=== PATIENT | female | born 1950 | race Caucasian/White ===

== ENCOUNTER 2020-07-15 17:41 | Inpatient (IN) ==
[2020-07-15 18:05] VITALS: BMI 38.1
--- NOTE | 2020-07-15 21:24 | DR.EXTPAIN ---
HPI Time seen Time Seen by Provider: 07/15/20 21:24 PCP Primary Care Physician: DESI MARQUEZ Complaint/Symptoms Chief Complaint:: PT C/O LEFT HIP AND LEG PAIN ( PT WAS IN ER THURSDAY AND PT WAS TOLD IT WAS ARTHITIS ) Self Treatment fo Chief Complaint: NERONTIN, DWAYNEZANADINE COVID-19 Coronavirus risk:travel/contact w/high risk person: No Has patient experienced Coronavirus symptoms: No Nurses notes reviewed Nurses Notes Review: Yes Source History Provided: Patient Mode of arrival Mode of Arrival: Ambulatory Timing Onset of Chief Complaint: 07/13/20 Context History of: None Associated signs and symptoms Associated Signs and Symptoms: None PMH PMH Past Medical History: Yes Past Medical History: Arthritis, Diabetes, Dyslipidemia, Hypertension and Hypothyroidism Past Surgical History: Yes Surgical History: Hysterectomy Family History History of Family Medical Conditions: Yes Family Medical History: Diabetes Mellitus and Hypertension Social History Does patient currently use any type of tobacco product: No Have you used tobacco products in the last 12 months: No Type of Tobacco Use: None Does any household member use tobacco: No Alcohol Use: None Do you use any recreational Drugs:: No Lives With: Family Lives Where: Home Travel Risk Coronavirus risk:travel/contact w/high risk person: No Has patient experienced Coronavirus symptoms: No Infectious screening In the last 2 months have you had wt loss of >10#?: NO Have you had fever, night sweats or hemotysis?: No Have you traveled outside the country in the last 6 months?: No Isolation: Standard ROS Review of Systems Constitutional: No Symptoms Reported Eyes: No Symptoms Reported ENTM: No Symptoms Reported Respiratoy: No Symptoms Reported Cardiovascular: No Symptoms Reported Gastrointestinal/Abdominal: No Symptoms Reported Genitourinary: No Symptoms Reported Neurological: No Symptoms Reported Musculoskeletal: No Symptoms Reported Integumentary: No Symptoms Reported Hematologic/Lymphatic: No Symptoms Reported Endocrine: No Symptoms Reported Psychiatric: No Symptoms Reported All Other Systems: Reviewed and Negative PE Vital Signs Vitals: Temperature 96.6 F Pulse Rate [Left Brachial] 60 Pulse Rate 82 Respiratory Rate 20 Blood Pressure [Right Arm] 192/78 Blood Pressure 112/80 O2 Sat by Pulse Oximetry 93 General Limitations: No Limitations General Appearance: Alert and In No Apparent Distress Head Head Exam: Normal Inspection Eyes Eye exam: Normal Appearance ENT ENT Exam: Normal Exam Neck Neck Exam: Normal Inspection Chest Chest Inspection: Normal Inspection Respiratory Respiratory Exam: Normal Lung Sounds Bilat Cardiovascular Cardiovascular Exam: Regular Rate and Normal Rhythm Abdominal Exam Abdominal Exam: Normal Inspection, Normal Bowel Sounds and Soft Extremities Extremities Exam: Normal Inspection Back Back Exam: Normal Inspection Neurological Neurological Exam: Alert, Oriented X3 and CN II-XII Intact Psychiatric Psychiatric Exam: Normal Affect and Normal Mood Skin Skin Exam: Warm, Dry, Intact and Normal Color ROR Labs Reviewed Result Diagrams: 07/15/20 21:35 07/15/20 21:35 Laboratory: WBC 8.1 X10^3/uL (3.6-10.0) 07/15/20 21:35 RBC 5.31 X10^6/uL (3.5-5.4) 07/15/20 21:35 Hgb 15.0 g/dL (12.0-16.0) 07/15/20 21:35 Hct 45.3 % (36.0-47.0) 07/15/20 21:35 MCV 85.4 fL (80.0-100.0) 07/15/20 21:35 MCH 28.2 pg (27.0-34.0) 07/15/20 21:35 MCHC 33.0 g/dL (33.0-35.0) 07/15/20 21:35 RDW 15.1 % (11.6-16.5) 07/15/20 21:35 Plt Count 247 X10^3/uL (150.0-450.0) 07/15/20 21:35 MPV 7.5 fL (7.4-11.0) 07/15/20 21:35 Neut % (Auto) 68.3 % (42.0-75.0) 07/15/20 21:35 Lymph % (Auto) 20.2 % (21.0-51.0) L 07/15/20 21:35 [place] % (Auto) 8.2 % (0.0-13.0) 07/15/20 21:35 Eos % (Auto) 1.3 % (0.9-2.9) 07/15/20 21:35 Baso % (Auto) 2.0 % (0.2-1.0) H 07/15/20 21:35 Neut # (Auto) 5.5 x10^3/uL (2.2-4.8) H 07/15/20 21:35 Lymph # (Auto) 1.6 X10^3/uL (1.3-2.9) 07/15/20 21:35 [place] # (Auto) 0.7 x10^3/uL (0.3-0.8) 07/15/20 21:35 Eos # (Auto) 0.1 x10^3/uL (0.0-0.2) 07/15/20 21:35 Baso # (Auto) 0.2 X10^3/uL (0.0-0.1) H 07/15/20 21:35 Absolute Nucleated RBC 0.1 /100WBC 07/15/20 21:35 D-Dimer 3.02 ug/ml (0.0-0.57) H* 07/15/20 21:35 Sodium 146 mmol/L (136-145) H 07/15/20 21:35 Corrected Sodium TNP 07/15/20 21:35 Potassium 3.7 mmol/L (3.5-5.1) 07/15/20 21:35 Chloride 107 mmol/L (98-107) 07/15/20 21:35 Carbon Dioxide 30.2 mmol/L (21-32) 07/15/20 21:35 BUN 16 mg/dL (7-18) 07/15/20 21:35 Creatinine 1.22 mg/dL (0.55-1.02) H 07/15/20 21:35 Est GFR (MDRD) Af Amer 56 (>60) L 07/15/20 21:35 Est GFR (MDRD) Non-Af 46 (>60) L 07/15/20 21:35 Glucose 101 mg/dL (65-99) H 07/15/20 21:35 Calcium 9.2 mg/dL (8.5-10.1) 07/15/20 21:35 Corrected Calcium 9.8 mg/dL (8.5-10.1) 07/15/20 21:35 Total Bilirubin 0.30 mg/dL (0.2-1.0) 07/15/20 21:35 AST 18 Units/L (15-37) 07/15/20 21:35 ALT 19 Units/L (12-78) 07/15/20 21:35 Alkaline Phosphatase 92 Units/L (46-116) 07/15/20 21:35 Total Protein 7.7 g/dL (6.4-8.2) 07/15/20 21:35 Albumin 3.3 g/dL (3.4-5.0) L 07/15/20 21:35 Globulin 4.4 g/dL (2.5-4.5) 07/15/20 21:35 Albumin/Globulin Ratio 0.8 Ratio (1.1-2.1) L 07/15/20 21:35 SARS CoV-2 RNA Rapid BOBBY Negative (NEGATIVE) 07/16/20 02:50 EKG [place]: Normal Rhythm: NSR Block: None Hypertrophy: None ST: Normal Opioid Opioid Risk Tool Age (Philippe box if 16-45): No History of Preadolescent Sexual Abuse: No Total: 0 Total Score Risk Category: Low Risk Copyright: Brayan WYLIE predicting aberrant behaviors Instructions Forms: Precautions for COVID19 Patient Portal Social Distancing
[2020-07-15] MEDS ORDERED: MORPHINE SULFATE INJ 4 MG ONE (21:31)
[2020-07-15] MEDS ORDERED: ZOFRAN INJ 4 MG VIAL ONE (21:31)
[2020-07-15] MEDS ORDERED: ZOFRAN INJ 4 MG VIAL IM ONE (21:42)
[2020-07-15] MEDS ORDERED: MORPHINE SULFATE INJ 4 MG IM ONE (21:42)
[2020-07-15 21:44] LABS: BASOPHILS # (AUTO) 0.2 X10^3/uL (0.0-0.1); EOSINOPHILS # (AUTO) 0.1 x10^3/uL (0.0-0.2); EOSINOPHILS % (AUTO) 1.3 % (0.9-2.9); HEMATOCRIT 45.3 % (36.0-47.0); LYMPHOCYTES # (AUTO) 1.6 X10^3/uL (1.3-2.9); LYMPHOCYTES % (AUTO) 20.2 % (21.0-51.0); MEAN CORPUSCULAR HEMOGLOBIN 28.2 pg (27.0-34.0); MEAN CORPUSCULAR VOLUME 85.4 fL (80.0-100.0); MEAN PLATELET VOLUME 7.5 fL (7.4-11.0); MONOCYTES # (AUTO) 0.7 x10^3/uL (0.3-0.8); MONOCYTES % (AUTO) 8.2 % (0.0-13.0); NEUTROPHILS # (AUTO) 5.5 x10^3/uL (2.2-4.8); NEUTROPHILS % (AUTO) 68.3 % (42.0-75.0); PLATELET COUNT 247 X10^3/uL (150.0-450.0); RED BLOOD COUNT 5.31 X10^6/uL (3.5-5.4); RED CELL DISTRIBUTION WIDTH 15.1 % (11.6-16.5); WHITE BLOOD COUNT 8.1 X10^3/uL (3.6-10.0)
[2020-07-15 21:55] LABS: ALANINE AMINOTRANSFERASE 19 Units/L (12-78); ALBUMIN 3.3 g/dL (3.4-5.0); ALKALINE PHOSPHATASE 92 Units/L (46-116); ASPARTATE AMINO TRANSFERASE 18 Units/L (15-37); BLOOD UREA NITROGEN 16 mg/dL (7-18); CALCIUM 9.2 mg/dL (8.5-10.1); CARBON DIOXIDE 30.2 mmol/L (21-32); CHLORIDE 107 mmol/L (98-107); COR CA(FOR HYPOALB) 9.8 mg/dL (8.5-10.1); CREATININE 1.22 mg/dL (0.55-1.02); SODIUM 146 mmol/L (136-145); TOTAL PROTEIN 7.7 g/dL (6.4-8.2); eGFR NON BLACK RACES 46 (>60)
[2020-07-15] MEDS ORDERED: NORVASC TAB 5 MG ONE (23:16)
[2020-07-15] MEDS ORDERED: CATAPRES TAB 0.1 MG PO ONE (23:18)
[2020-07-16] MEDS ORDERED: CATAPRES TAB 0.1 MG ONE (00:12)
[2020-07-16] MEDS ORDERED: NS 100 ML IV 100 ML IV ONE (00:37)
--- NOTE | 2020-07-16 00:43 | VAS ---
HISTORYLEFT HIP PAIN, ELEVATED D-DIMERSTUDYLOWER EXT VENOUS, UNILATERALCOMPARISONNo relevant prior studies available.TECHNIQUEGrayscale and color Doppler images of the left lower extremity.FINDINGSCommon femoral, femoral and popliteal veins demonstrate normal compressibility, color Doppler flow, waveforms and augmentation with no filling defects.Soft tissues: UnremarkableIMPRESSIONNo evidence of deep venous thrombus.Electronically signed by: Jose Cruz Carmona (July 16, 2020 00:41:41)
--- NOTE | 2020-07-16 02:16 | CT ---
HISTORY: [Dyspnea and shortness of breath]. Elevated D-dimerStudy: CT angiogram of the chest with contrast, using the CT PE protocol. For this CT pulmonary embolism angiographic protocol, 3D reformats / maximum intensity projections (MIPs) of the pulmonary arterial circulation and pulmonary arteries was performed.Comparison: [None].Technique: Multiple CT angiographic axial images of the chest were obtained from the thoracic inlet to the upper abdomen after the administration of IV contrast. For this CT pulmonary embolism angiographic protocol, 3D reformats / maximum intensity projections (MIPs) of the pulmonary arterial circulation and pulmonary arteries was performed.FINDINGS:The thoracic inlet is [unremarkable]. The mediastinum [does not demonstrate pathological lymphadenopathy].There is [no paracardial effusion] observed. The thoracic aorta [is normal in its contour without evidence for aneurysmal dilatation or acute dissection]. Thrombi present within segmental and subsegmental branches supplying the right upper and lower lobes. There is no CT evidence of right heart strain.Evaluation of the lung parenchyma [fails to demonstrate focal consolidation or effusion]. [No pulmonary nodule or mass] is identified]. The bony thorax is .unremarkable in its appearance]. The visualized portions of the upper abdomen [are without acute abnormality]. Small hiatal hernia.IMPRESSION:[Acute pulmonary embolic disease with several thrombi present within segmental and subsegmental branches supplying the right upper and right lower lobes. Clot burden low.COMMUNICATIONS: These findings were discussed with of the emergency Department at 2:11 a.m. 07/16/2020.[]Electronically signed by: Donis Bentley (July 16, 2020 02:14:22)
[2020-07-16] MEDS ORDERED: CATAPRES TAB 0.2 MG ONE (03:15)
[2020-07-16] MEDS ORDERED: CATAPRES TAB 0.2 MG PO ONE (03:18)
[2020-07-16] MEDS ORDERED: HEPARIN SODIUM INJ 5000 UNITS ONE ×3 (03:47→19:32)
[2020-07-16] MEDS ORDERED: HEPARIN SODIUM IN D5W 25,000 UNITS/500 ML BAG IV ONE (03:48)
[2020-07-16] MEDS: HEPARIN SODIUM IN D5W 25,000 UNITS/500 ML BAG IV PRN ×2 (04:00→12:30)
[2020-07-16] MEDS: CATAPRES TAB 0.1 MG PO SCH ×2 (09:10→20:20)
[2020-07-16] MEDS ORDERED: ZANAFLEX PO PRN (10:19)
[2020-07-16] MEDS ORDERED: ULTRAM PO PRN (10:24)
[2020-07-16] MEDS ORDERED: VITAMIN D (1.25MG) PO SCH (10:30)
--- NOTE | 2020-07-16 10:54 | DR.H&P ---
H&P History & Physical for Day of: H&P Date: 07/16/20 Chief Complaint Chief Complaint: Acute low back pain Left hip pain Allergies Allergies Allergy/AdvReac Type Severity Reaction Status Date / Time No Known Drug Allergies Allergy Verified 07/13/20 12:23 History of Present Illness History of Present Illness: Pt is a 70 year old female past medical history of DDD, HTN, DMT2, Hypothyroidism, presenting initially with persistent severe low back and left hip pain. Pt reports pain is chronic but has recently worsened and having difficulty tolerating even with pain medication that she takes. Labs/imaging: Wbc 8.1, Hgb 15, Plt 247, Na 146, K 3.7, Creatinine 1.22, Glucose 101, D-dimer 3.02, CTAP was obtained and revealed: No acute intra-abdominal or pelvic inflammatory process identified by noncontrast imaging techniques. Nonobstructing lower pole right renal calculus. Colonic diverticulosis without diverticulitis. Advanced multilevel discogenic degenerative changes and facet hypertrophy of the lumbar spine with associated multilevel spinal stenosis and neural foraminal compromise. Small hiatal hernia and small fat containing left inguinal hernia. Other chronic, postsurgical, and age related degenerative findings, as described above. With elevated d-dimer, LLE U/S obtained that was negative for DVT, CTA Chest revealed: Acute pulmonary embolic disease with several thrombi present within segmental and subsegmental branches supplying the right upper and right lower lobes. Clot burden low. Pt reported no shortness of breath or chest pain as initial complaint or reason to go to ED. Pt was started on heparin gtt. For pain control, IV morphine 2mg Q6h prn. Restarted on home medications including tramadol. Continue heparin infusion, will need to convert to po NOAC before discharge. Likely will need outpatient referral to ortho/neurosurgery for DDD. Will continue to monitor and follow up labs/imaging in the morning. Past Medical History Past Medical History: Arthritis, Diabetes, Dyslipidemia, Hypertension and Hypothyroidism Past Surgical History Surgical History: Hysterectomy and Other Family History Family Medical History: Diabetes Mellitus, Coronary Artery Disease and Hypertension Social History Does patient currently use any type of tobacco product: No Have you used tobacco products in the last 12 months: No Type of Tobacco Use: None Does any household member use tobacco: No Alcohol Use: None Drug Use: None Medications Home Medications: No Known Drug Allergies Allergy (Verified 07/13/20 12:23) CONTINUE taking the following medications alendronate 10 mg PO QAM 07/16/20 [History] alprazolam 0.5 - 1 mg PO BID 07/16/20 [History] amlodipine 10 mg PO HS 07/16/20 [History] clonidine 0.3 mg TRANSDERMAL QWEEK 07/16/20 [History] clonidine HCl 0.1 mg PO BID PRN 07/16/20 [History] duloxetine 20 mg PO DAILY 07/16/20 [History] ergocalciferol (vitamin D2) [Vitamin D2] 1,250 mcg PO QWEEK 07/16/20 [History] escitalopram oxalate 10 mg PO DAILY 07/16/20 [History] gabapentin 300 mg PO HS 07/16/20 [History] ibuprofen 800 mg PO DAILY 07/16/20 [History] levothyroxine 88 mcg PO DAILY 07/16/20 [History] losartan 100 mg PO DAILY 07/16/20 [History] metformin 500 mg PO BID 07/16/20 [History] tramadol 50 mg PO Q4-6H PRN 07/16/20 [History] Labs Result Diagrams: 07/15/20 21:35 07/15/20 21:35 Labs: Laboratory WBC 8.1 X10^3/uL (3.6-10.0) 07/15/20 21:35 RBC 5.31 X10^6/uL (3.5-5.4) 07/15/20 21:35 Hgb 15.0 g/dL (12.0-16.0) 07/15/20 21:35 Hct 45.3 % (36.0-47.0) 07/15/20 21:35 MCV 85.4 fL (80.0-100.0) 07/15/20 21:35 MCH 28.2 pg (27.0-34.0) 07/15/20 21:35 MCHC 33.0 g/dL (33.0-35.0) 07/15/20 21:35 RDW 15.1 % (11.6-16.5) 07/15/20 21:35 Plt Count 247 X10^3/uL (150.0-450.0) 07/15/20 21:35 MPV 7.5 fL (7.4-11.0) 07/15/20 21:35 Neut % (Auto) 68.3 % (42.0-75.0) 07/15/20 21:35 Lymph % (Auto) 20.2 % (21.0-51.0) L 07/15/20 21:35 [place] % (Auto) 8.2 % (0.0-13.0) 07/15/20 21:35 Eos % (Auto) 1.3 % (0.9-2.9) 07/15/20 21:35 Baso % (Auto) 2.0 % (0.2-1.0) H 07/15/20 21:35 Neut # (Auto) 5.5 x10^3/uL (2.2-4.8) H 07/15/20 21:35 Lymph # (Auto) 1.6 X10^3/uL (1.3-2.9) 07/15/20 21:35 [place] # (Auto) 0.7 x10^3/uL (0.3-0.8) 07/15/20 21:35 Eos # (Auto) 0.1 x10^3/uL (0.0-0.2) 07/15/20 21:35 Baso # (Auto) 0.2 X10^3/uL (0.0-0.1) H 07/15/20 21:35 Absolute Nucleated RBC 0.1 /100WBC 07/15/20 21:35 PT 13.1 SECONDS (11.8-14.3) 07/16/20 03:15 INR Target Range - 07/16/20 03:15 INR 1.04 (0.8-1.3) 07/16/20 03:15 APTT 177.5 SECONDS (22.9-36.5) H* 07/16/20 10:15 PTT Comment - 07/16/20 10:15 D-Dimer 3.02 ug/ml (0.0-0.57) H* 07/15/20 21:35 Sodium 146 mmol/L (136-145) H 07/15/20 21:35 Corrected Sodium TNP 07/15/20 21:35 Potassium 3.7 mmol/L (3.5-5.1) 07/15/20 21:35 Chloride 107 mmol/L (98-107) 07/15/20 21:35 Carbon Dioxide 30.2 mmol/L (21-32) 07/15/20 21:35 BUN 16 mg/dL (7-18) 07/15/20 21:35 Creatinine 1.22 mg/dL (0.55-1.02) H 07/15/20 21:35 Est GFR (MDRD) Af Amer 56 (>60) L 07/15/20 21:35 Est GFR (MDRD) Non-Af 46 (>60) L 07/15/20 21:35 Glucose 101 mg/dL (65-99) H 07/15/20 21:35 Calcium 9.2 mg/dL (8.5-10.1) 07/15/20 21:35 Corrected Calcium 9.8 mg/dL (8.5-10.1) 07/15/20 21:35 Total Bilirubin 0.30 mg/dL (0.2-1.0) 07/15/20 21:35 AST 18 Units/L (15-37) 07/15/20 21:35 ALT 19 Units/L (12-78) 07/15/20 21:35 Alkaline Phosphatase 92 Units/L (46-116) 07/15/20 21:35 Total Protein 7.7 g/dL (6.4-8.2) 07/15/20 21:35 Albumin 3.3 g/dL (3.4-5.0) L 07/15/20 21:35 Globulin 4.4 g/dL (2.5-4.5) 07/15/20 21:35 Albumin/Globulin Ratio 0.8 Ratio (1.1-2.1) L 07/15/20 21:35 SARS CoV-2 RNA Rapid BOBBY Negative (NEGATIVE) 07/16/20 02:50 Review of Systems Constitutional: Weakness; denies Fever and Chills Eyes: No Symptoms Reported ENT: No Symptoms Reported Respiratory: No Symptoms Reported Cardiovascular: No Symptoms Reported Gastrointestinal: No Symptoms Reported Genitourinary: No Symptoms Reported Musculoskeletal: Back Pain and Leg Pain (left) Skin: No Symptoms Reported Neurological: No Symptoms Reported Physical Exam Vital Signs: Temperature 96.6 F Pulse Rate [Left Brachial] 60 Pulse Rate 60 Respiratory Rate 21 Blood Pressure [Right Arm] 192/78 Blood Pressure 145/70 O2 Sat by Pulse Oximetry 99 Oriented: Normal Eyes: Normal Ear: Normal Nose: Normal Throat: Normal Respiratory: Clear Throughout Cardiovascular: Normal : Normal Auscultation: Bowel Sounds: Normal Palpation: Normal Tenderness: Normal Skin: Normal Musculoskeletal: Hip, Back:Lumbar and Back:Midline Psychiatric: Normal Mood Description: Calm and Appropriate Affect: Normal Speech Pattern: Clear and Appropriate Assessment/Plan (1) Pulmonary embolism: Status: Acute Plan: Heparin gtt (2) Acute hip pain: Status: Acute (3) Lower back pain: Qualifiers: Back pain laterality: bilateral Chronicity: acute Sciatica laterality: sciatica of right side Sciatica presence: with sciatica Qualified Code(s): M54.41 - Lumbago with sciatica, right side Status: Acute Review H&P Reviewed: Yes Patient was examined?: Yes
[2020-07-16] MEDS ORDERED: CATAPRES-TTS-1 TD SCH (11:00)
[2020-07-16] MEDS ORDERED: LEXAPRO ONE (11:11)
[2020-07-16] MEDS: COZAAR PO SCH (11:12)
[2020-07-16] MEDS: SYNTHROID 88 mcg TAB PO SCH (11:13)
[2020-07-16] MEDS: LEXAPRO PO SCH (11:13)
[2020-07-16] MEDS: PATIENT'S HOME MEDICATION PO SCH (12:24)
[2020-07-16 13:27] LABS: BILIRUBIN,URINE NEGATIVE (NEGATIVE); BLOOD/HEMOGLOBIN,URINE 5+ (NEGATIVE); GLUCOSE, URINE NEGATIVE (NEGATIVE); KETONES,URINE NEGATIVE (NEGATIVE); LEUKOCYTE ESTERASE ,URINE NEGATIVE (NEGATIVE); NITRITES,URINE NEGATIVE (NEGATIVE); PROTEIN,URINE 2+ (NEGATIVE); UROBILINOGEN,URINE 1+ (NORMAL)
[2020-07-16 13:43] LABS: APPEARANCE,URINE HAZY (CLEAR); BACTERIA,URINE NEGATIVE /HPF (NEGATIVE); COLOR,URINE DARK YELLOW (YELLOW); MUCUS,URINE RARE /HPF (NEGATIVE); RBC,URINE 20-30 /HPF (0-3); SQUAMOUS EPITHELIAL CELL,UR FEW /HPF (NEGATIVE)
[2020-07-16] MEDS ORDERED: GLUCOPHAGE ONE (17:15)
[2020-07-16] MEDS: GLUCOPHAGE PO SCH (17:25)
[2020-07-16] MEDS ORDERED: HEPARIN SODIUM INJ 5000 UNITS IVP ONE (19:30)
[2020-07-16] MEDS ORDERED: NEURONTIN CAP 300 MG ONE (19:56)
[2020-07-16] MEDS: NEURONTIN CAP 300 MG PO SCH (20:21)
[2020-07-16] MEDS: XANAX PO PRN (21:10)
[2020-07-16] MEDS ORDERED: NORVASC TAB 10 MG PO ONE (23:14)
[2020-07-17 01:57] LABS: BASOPHILS # (AUTO) 0.1 X10^3/uL (0.0-0.1); BASOPHILS % (AUTO) 1.3 % (0.2-1.0); EOSINOPHILS # (AUTO) 0.1 x10^3/uL (0.0-0.2); EOSINOPHILS % (AUTO) 0.7 % (0.9-2.9); HEMATOCRIT 42.1 % (36.0-47.0); LYMPHOCYTES # (AUTO) 1.6 X10^3/uL (1.3-2.9); LYMPHOCYTES % (AUTO) 18.6 % (21.0-51.0); MEAN CORPUSCULAR HEMOGLOBIN 28.8 pg (27.0-34.0); MEAN CORPUSCULAR HGB CONC 33.2 g/dL (33.0-35.0); MEAN CORPUSCULAR VOLUME 86.9 fL (80.0-100.0); MONOCYTES # (AUTO) 0.5 x10^3/uL (0.3-0.8); MONOCYTES % (AUTO) 6.5 % (0.0-13.0); NEUTROPHILS # (AUTO) 6.1 x10^3/uL (2.2-4.8); NEUTROPHILS % (AUTO) 72.9 % (42.0-75.0); PLATELET COUNT 226 X10^3/uL (150.0-450.0); RED BLOOD COUNT 4.85 X10^6/uL (3.5-5.4); WHITE BLOOD COUNT 8.3 X10^3/uL (3.6-10.0)
[2020-07-17 01:58] LABS: ALANINE AMINOTRANSFERASE 19 Units/L (12-78); ALKALINE PHOSPHATASE 84 Units/L (46-116); ASPARTATE AMINO TRANSFERASE 19 Units/L (15-37); BLOOD UREA NITROGEN 18 mg/dL (7-18); CALCIUM 8.4 mg/dL (8.5-10.1); CARBON DIOXIDE 27.5 mmol/L (21-32); CHLORIDE 105 mmol/L (98-107); COR CA(FOR HYPOALB) 9.2 mg/dL (8.5-10.1); COR NA(FOR HYPERGLY) 143 mmol/L (136-145); CREATININE 1.05 mg/dL (0.55-1.02); SODIUM 142 mmol/L (136-145); TOTAL PROTEIN 7.3 g/dL (6.4-8.2); eGFR NON BLACK RACES 55 (>60)
[2020-07-17] MEDS ORDERED: POTASSIUM CHLORIDE LIQ 20 MEQ UDC PO PRN (03:20)
[2020-07-17] MEDS ORDERED: MAGNESIUM SULFATE 1 GRAM/100 mL PREMIX 1 GM/100 ML BAG IV PRN (03:20)
[2020-07-17] MEDS ORDERED: K-DUR TAB 20 MEQ PO PRN (03:20)
[2020-07-17] MEDS ORDERED: K-RIDER 10 MEQ/NS 100 ML 10 MEQ/100 ML BAG IV PRN (03:20)
[2020-07-17] MEDS ORDERED: KLOR-CON PO PRN (03:20)
[2020-07-17] MEDS ORDERED: K-DUR TAB 20 MEQ PO ONE (04:10)
[2020-07-17] MEDS ORDERED: GLUCOPHAGE ONE ×2 (04:10→17:35)
[2020-07-17] MEDS: HEPARIN SODIUM IN D5W 25,000 UNITS/500 ML BAG IV PRN (04:15)
[2020-07-17] MEDS: SYNTHROID 88 mcg TAB PO SCH (06:09)
[2020-07-17] MEDS: GLUCOPHAGE PO SCH ×2 (06:09→17:58)
[2020-07-17] MEDS ORDERED: LEXAPRO ONE (09:14)
[2020-07-17] MEDS: CATAPRES TAB 0.1 MG PO SCH ×2 (09:27→21:10)
[2020-07-17] MEDS: COZAAR PO SCH (09:27)
[2020-07-17] MEDS: NORVASC TAB 10 MG PO SCH (09:28)
[2020-07-17] MEDS: LEXAPRO PO SCH (09:28)
[2020-07-17] MEDS: PATIENT'S HOME MEDICATION PO SCH ×2 (10:03→10:04)
--- NOTE | 2020-07-17 10:47 | RAD ---
HISTORYPAINSTUDYX-ray left tib fib two viewsCOMPARISONNoneFINDINGSNo fracture or dislocation.Phlebolith is seen in the lower leg. Possible mild soft tissue swelling.No arthritic change are seen.IMPRESSIONPossible mild soft tissue swelling. No bony abnormality is seen.Electronically signed by: Ryland Browne (Jul 17, 2020 10:45:25)
--- NOTE | 2020-07-17 14:46 | DR.CONSULT ---
CONSULT Consultation for Day of: Date: 07/17/20 Chief Complaint Chief Complaint: Left leg pain Allergies Allergies Allergy/AdvReac Type Severity Reaction Status Date / Time No Known Drug Allergies Allergy Verified 07/13/20 12:23 History of Present Illness History of Present Illness: 70-year-old female with past medical history [facility] for [facility], hypertension,Hypothyroidism and history of total abdominal hysterectomy and bilateral salpingo-oophorectomy who presented to the emergency room complaining of left hip pain. Patient also had back pain. CT scan of the back showed multilevel discogenic degenerative changes. The patient had elevated D-dimer and lower extremity ultrasound was negative for DVT but CTA of the chest showed acute pulmonary emboli within segmental and sub segmental branches of the him the right upper and right lower lobes him him him. Clot burden was low. Complains of the left hip pain with walking. It is relieved by rest. Past Medical History Past Medical History: Arthritis, Diabetes, Dyslipidemia, Hypertension and Hypothyroidism Past Surgical History Surgical History: Hysterectomy and Other Additional Surgical History: Total abdominal hysterectomy and bilateral salpingo- oophorectomy Family History Family Medical History: Diabetes Mellitus, Coronary Artery Disease and Hypertension Social History Does patient currently use any type of tobacco product: No Have you used tobacco products in the last 12 months: No Type of Tobacco Use: None Does any household member use tobacco: No Alcohol Use: None Drug Use: None Medications Home Medications: No Known Drug Allergies Allergy (Verified 07/13/20 12:23) CONTINUE taking the following medications alendronate 10 mg PO QAM 07/16/20 [History] alprazolam 0.5 - 1 mg PO BID 07/16/20 [History] amlodipine 10 mg PO HS 07/16/20 [History] clonidine 0.3 mg TRANSDERMAL QWEEK 07/16/20 [History] clonidine HCl 0.1 mg PO BID PRN 07/16/20 [History] duloxetine 20 mg PO DAILY 07/16/20 [History] ergocalciferol (vitamin D2) [Vitamin D2] 1,250 mcg PO QWEEK 07/16/20 [History] escitalopram oxalate 10 mg PO DAILY 07/16/20 [History] gabapentin 300 mg PO HS 07/16/20 [History] ibuprofen 800 mg PO DAILY 07/16/20 [History] levothyroxine 88 mcg PO DAILY 07/16/20 [History] losartan 100 mg PO DAILY 07/16/20 [History] metformin 500 mg PO BID 07/16/20 [History] tramadol 50 mg PO Q4-6H PRN 07/16/20 [History] Review of Systems Musculoskeletal: Leg Pain (Complains of left hip pain with walking) Physical Exam Vital Signs: Temperature 97.8 F Pulse Rate [Left Brachial] 60 Pulse Rate 61 Respiratory Rate 24 Blood Pressure [Right Arm] 192/78 Blood Pressure 125/60 O2 Sat by Pulse Oximetry 95 Oriented: Normal, Time, Person and Place Eyes: Normal Ear: Normal Nose: Normal Respiratory: Clear Throughout Cardiovascular: Normal (Regular rate and rhythm) Auscultation: Bowel Sounds: Normal Palpation: Normal Skin: Normal Musculoskeletal: Normal Plan Plan: Physical exam as per the admitting physician, Dr. Mathews. Must consider ischemic left lower extremity is the cause. Patient will require lower extremity arterial duplex with ankle brachial indices . Although the clot burn appears to be low I will obtain a cardiac echo to see if there's any evidence of right heart strain or decreased left ventricular to right ventricular diameter.Patient remains of heparin drip. I agree with this.
--- NOTE | 2020-07-17 16:41 | VAS ---
Bilateral LOWER EXT ARTERIAL ultrasoundHISTORY:LEFT LEG PAINComparison:NoneTechnique:Multiple lowe scale and color flow Doppler images of the right and left lower extremity arterial system were obtained. Interrogation of the common femoral artery, superficial femoral artery, popliteal artery, and tibial arteries was performed.Findings:Biphasic waveforms are seen throughout the right and left lower extremity from the common femoral arterial system to the tibial runoff.Right extremity:Common femoral : 127 cm/sSuperficial femoral proximal: 64 cm/sSuperficial femoral mid: 111 cm/sSuperficial femoral distal : 87 cm/sPopliteal : 101 cm/sPosterior tibial : 63 cm/sAnterior tibial: 42 cm/secPeroneal: 37 cm/secDorsalis pedis: 29 cm/sLeft extremity:Common femoral : 128 cm/sSuperficial femoral proximal: 113 cm/sSuperficial femoral mid: 133 cm/sSuperficial femoral distal :131 cm/sPopliteal : 84 cm/sPosterior tibial : 48 cm/sAnterior tibial: 55 cm/secPeroneal: 78 cm/secDorsalis pedis: 40 cm/sIMPRESSION:No velocities suggestive of hemodynamically significant stenosis of the right and left lower extremity arterial system.[email or web address].nlm.nih.gov/pubmed/[email or web address] signed by: Ryland Browne (Jul 17, 2020 16:38:37)
--- NOTE | 2020-07-17 17:52 | PCM.PROG ---
Progress Note - Progress Note for Day of Date of Exam: 07/17/20 - Subjective Subjective: WAS ADMITTED FOR ACUTE PULMONARY EMBOLIC DISEASE WITH SEVERAL THROMBI PRESENTE WITHIN SEGMENTAL AND SUBSEGMENTAL BRANCHES SUPPLYING THE RIGHT UPPER AND RIGHT LOWER LOBES. SHE WAS STARTED ON A HEPARIN DRIP. HER PMH INCLUDES DDD, HTN, DM II, HYPOTHYROIDISM, AND CHRONIC BACK PAIN. TODAY, SHE IS ALERT AND ORIENTED, LYING IN BED ON MORNING ROUNDS. SHE REPORTS RIGHT LEG PAIN TODAY. A VENOUS DOPPLER WAS DONE OF BILATERAL LOWER EXTREMITIES, BUT WAS NEGATIVE FOR DVT. ON EXAMINATION, HEART IS REGULAR IN RATE AND RHYTHM. BILATERAL LUNGS ARE NOTED TO HAVE DIMINISHED LUNG SOUNDS THROUGHOUT. ABDOMEN IS ROUND, SOFT, AND NON-TENDER WITH NORMAL BOWEL SOUNDS IN ALL QUADRANTS. LEFT LOWER EXTRE MITY IS NOTED WITH TENDERNESS TO PALPATION. HER VITALS THIS MORNING ARE: 97.8-58-22-99%-146/68. LABS WERE OBTAINED. ABNORMAL LAB VALUES INCLUDE THE FOLLOWING: CREATININE 1.05, GLUCOSE 141, CALCIUM 8.4, ALBUMIN 3.0. SHE IS CURRENTLY RECEIVING: HEPARIN IV DRIP, POTASSIUM AND MAGNESIUM PROTOCOLS, XANAX 0.5-1MG PO BID PRN, NORVASC 10MG PO DAILY, CATAPRES 0.1MG/HR TD PATCH, VITAMIN D WEEKLY, LEXAPRO 10MG PO DAILY, NEURONTIN 300MG PO HS, SYNTHROID 88MCG PO DAILY, COZAAR 100MG PO DAILY, GLUCOPHAGE 500MG PO BIDWM, ZANAFLEX 4MG PO BID PRN, AND ULTRAM 50MG PO Q4-6H PRN. WE WILL CONTINUE WITH CURRENT PLAN OF CARE AND CONSULT WITH THE VASCULAR SURGEON TODAY. WE WILL ALSO OBTAIN A LEFT LEG XRAY. OTHERWISE, WE WILL FOLLOW UP WITH AM LABS AND CONTINUE TO MONITOR. - Past Medical Family Social History Past Med/Fam/Surg Hx: No changes since H&P Allergies: Allergies No Known Drug Allergies Allergy (Verified 07/13/20 12:23) - Review of Systems ROS: No change since H&P - Vital Signs and I&O's Vital Signs: Temperature 97.6 F Pulse Rate [Left Brachial] 60 Pulse Rate 66 Respiratory Rate 31 Blood Pressure [Right Arm] 192/78 Blood Pressure 188/82 O2 Sat by Pulse Oximetry 99 Intake and Output: Intake & Output 07/15/20 07/16/20 07/17/20 07/18/20 11:59 11:59 11:59 11:59 Intake Total 425 / 425 3310 / 3310 128 / 128 Balance 425 / 425 3310 / 3310 128 / 128 - Physical Exam Oriented: Normal, Time, Person, Place Eyes: Normal Ear: Normal Nose: Normal Throat: Normal Respiratory: Generalized, Diminished Cardiovascular: Normal (Regular rate and rhythm) : Normal Auscultation: Bowel Sounds: Normal Palpation: Normal Tenderness: Normal Skin: Normal Musculoskeletal: Normal Psychiatric: Normal Mood Description: Calm, Appropriate Affect: Normal Speech Pattern: Clear, Appropriate - Laboratory and Diagnostics Result Diagrams: 07/17/20 01:30 07/17/20 01:30 Labs: Laboratory WBC 8.3 X10^3/uL (3.6-10.0) 07/17/20 01:30 RBC 4.85 X10^6/uL (3.5-5.4) 07/17/20 01:30 Hgb 14.0 g/dL (12.0-16.0) 07/17/20 01:30 Hct 42.1 % (36.0-47.0) 07/17/20 01:30 MCV 86.9 fL (80.0-100.0) 07/17/20 01:30 MCH 28.8 pg (27.0-34.0) 07/17/20 01:30 MCHC 33.2 g/dL (33.0-35.0) 07/17/20 01:30 RDW 15.0 % (11.6-16.5) 07/17/20 01:30 Plt Count 226 X10^3/uL (150.0-450.0) 07/17/20 01:30 MPV 8.0 fL (7.4-11.0) 07/17/20 01:30 Neut % (Auto) 72.9 % (42.0-75.0) 07/17/20 01:30 Lymph % (Auto) 18.6 % (21.0-51.0) L 07/17/20 01:30 [place] % (Auto) 6.5 % (0.0-13.0) 07/17/20 01:30 Eos % (Auto) 0.7 % (0.9-2.9) L 07/17/20 01:30 Baso % (Auto) 1.3 % (0.2-1.0) H 07/17/20 01:30 Neut # (Auto) 6.1 x10^3/uL (2.2-4.8) H 07/17/20 01:30 Lymph # (Auto) 1.6 X10^3/uL (1.3-2.9) 07/17/20 01:30 [place] # (Auto) 0.5 x10^3/uL (0.3-0.8) 07/17/20 01:30 Eos # (Auto) 0.1 x10^3/uL (0.0-0.2) 07/17/20 01:30 Baso # (Auto) 0.1 X10^3/uL (0.0-0.1) 07/17/20 01:30 Absolute Nucleated RBC 0.1 /100WBC 07/17/20 01:30 PT 13.1 SECONDS (11.8-14.3) 07/16/20 03:15 INR Target Range - 07/16/20 03:15 INR 1.04 (0.8-1.3) 07/16/20 03:15 APTT 70.0 SECONDS (22.9-36.5) H 07/17/20 15:42 PTT Comment - 07/17/20 15:42 D-Dimer 3.02 ug/ml (0.0-0.57) H* 07/15/20 21:35 Sodium 142 mmol/L (136-145) 07/17/20 01:30 Corrected Sodium 143 mmol/L (136-145) 07/17/20 01:30 Potassium 3.9 mmol/L (3.5-5.1) 07/17/20 01:30 Chloride 105 mmol/L (98-107) 07/17/20 01:30 Carbon Dioxide 27.5 mmol/L (21-32) 07/17/20 01:30 BUN 18 mg/dL (7-18) 07/17/20 01:30 Creatinine 1.05 mg/dL (0.55-1.02) H 07/17/20 01:30 Est GFR (MDRD) Af Amer > 60 (>60) 07/17/20 01:30 Est GFR (MDRD) Non-Af 55 (>60) L 07/17/20 01:30 Glucose 141 mg/dL (65-99) H 07/17/20 01:30 POC Glucose (mg/dL) 117 mg/dL (65-99) H 07/17/20 16:37 Calcium 8.4 mg/dL (8.5-10.1) L 07/17/20 01:30 Corrected Calcium 9.2 mg/dL (8.5-10.1) 07/17/20 01:30 Magnesium 1.9 mg/dL (1.7-2.9) 07/17/20 01:30 Total Bilirubin 0.30 mg/dL (0.2-1.0) 07/17/20 01:30 AST 19 Units/L (15-37) 07/17/20 01:30 ALT 19 Units/L (12-78) 07/17/20 01:30 Alkaline Phosphatase 84 Units/L (46-116) 07/17/20 01:30 Total Protein 7.3 g/dL (6.4-8.2) 07/17/20 01:30 Albumin 3.0 g/dL (3.4-5.0) L 07/17/20 01:30 Globulin 4.3 g/dL (2.5-4.5) 07/17/20 01:30 Albumin/Globulin Ratio 0.7 Ratio (1.1-2.1) L 07/17/20 01:30 Specimen Type Clean catch urine 07/16/20 12:30 Urine Color Dark yellow (YELLOW) 07/16/20 12:30 Urine Appearance Hazy (CLEAR) 07/16/20 12:30 Urine pH 5.0 (5.0 - 8.0) 07/16/20 12:30 Ur Specific [place] 1.020 (1.000-1.030) 07/16/20 12:30 Urine Protein 2+ (NEGATIVE) 07/16/20 12:30 Urine Glucose (UA) Negative (NEGATIVE) 07/16/20 12:30 Urine Ketones Negative (NEGATIVE) 07/16/20 12:30 Urine Occult Blood 5+ (NEGATIVE) 07/16/20 12:30 Urine Nitrite Negative (NEGATIVE) 07/16/20 12:30 Urine Bilirubin Negative (NEGATIVE) 07/16/20 12:30 Urine Urobilinogen 1+ (NORMAL) 07/16/20 12:30 Ur Leukocyte Esterase Negative (NEGATIVE) 07/16/20 12:30 Urine RBC 20-30 /HPF (0-3) A 07/16/20 12:30 Urine WBC 0-2 /HPF (0-5) 07/16/20 12:30 Ur Squamous Epith Cells Few /HPF (NEGATIVE) 07/16/20 12:30 Urine Bacteria Negative /HPF (NEGATIVE) 07/16/20 12:30 Urine Mucus Rare /HPF (NEGATIVE) 07/16/20 12:30 Ur Culture Indicated? No/not indicated 07/16/20 12:30 SARS CoV-2 RNA Rapid BOBBY Negative (NEGATIVE) 07/16/20 02:50 - Plan (1) Pulmonary embolism Status: Acute Qualifiers: Pulmonary embolism type: unspecified Chronicity: acute Acute cor pulmonale presence: unspecified Qualified Code(s): I26.99 - Other pulmonary embolism without acute cor pulmonale Plan: HEPARIN IV DRIP, POTASSIUM AND MAGNESIUM PROTOCOLS, XANAX 0.5-1MG PO BID PRN, NORVASC 10MG PO DAILY, CATAPRES 0.1MG/HR TD PATCH, VITAMIN D WEEKLY, LEXAPRO 10MG PO DAILY, NEURONTIN 300MG PO HS, SYNTHROID 88MCG PO DAILY, COZAAR 100MG PO DAILY, GLUCOPHAGE 500MG PO BIDWM, ZANAFLEX 4MG PO BID PRN, AND ULTRAM 50MG PO Q4-6H PRN.
[2020-07-17] MEDS: NEURONTIN CAP 300 MG PO SCH (21:10)
[2020-07-17] MEDS: XANAX PO PRN (21:11)
[2020-07-18] MEDS ORDERED: APRESOLINE INJ 20 MG VIAL IVP PRN (02:18)
[2020-07-18 04:04] LABS: BASOPHILS # (AUTO) 0.1 X10^3/uL (0.0-0.1); EOSINOPHILS % (AUTO) 0.5 % (0.9-2.9); HEMATOCRIT 43.8 % (36.0-47.0); HEMOGLOBIN 14.4 g/dL (12.0-16.0); LYMPHOCYTES # (AUTO) 1.4 X10^3/uL (1.3-2.9); LYMPHOCYTES % (AUTO) 14.5 % (21.0-51.0); MEAN CORPUSCULAR HEMOGLOBIN 28.3 pg (27.0-34.0); MEAN CORPUSCULAR HGB CONC 32.9 g/dL (33.0-35.0); MEAN CORPUSCULAR VOLUME 86.1 fL (80.0-100.0); MEAN PLATELET VOLUME 7.9 fL (7.4-11.0); MONOCYTES # (AUTO) 0.7 x10^3/uL (0.3-0.8); MONOCYTES % (AUTO) 7.1 % (0.0-13.0); NEUTROPHILS # (AUTO) 7.2 x10^3/uL (2.2-4.8); NEUTROPHILS % (AUTO) 76.9 % (42.0-75.0); PLATELET COUNT 251 X10^3/uL (150.0-450.0); RED BLOOD COUNT 5.09 X10^6/uL (3.5-5.4); RED CELL DISTRIBUTION WIDTH 14.9 % (11.6-16.5); WHITE BLOOD COUNT 9.4 X10^3/uL (3.6-10.0)
[2020-07-18] MEDS: HEPARIN SODIUM IN D5W 25,000 UNITS/500 ML BAG IV PRN (04:08)
[2020-07-18 04:13] LABS: ALANINE AMINOTRANSFERASE 20 Units/L (12-78); ALKALINE PHOSPHATASE 87 Units/L (46-116); ASPARTATE AMINO TRANSFERASE 20 Units/L (15-37); BLOOD UREA NITROGEN 13 mg/dL (7-18); CALCIUM 8.7 mg/dL (8.5-10.1); CARBON DIOXIDE 30.4 mmol/L (21-32); CHLORIDE 106 mmol/L (98-107); COR CA(FOR HYPOALB) 9.5 mg/dL (8.5-10.1); COR NA(FOR HYPERGLY) 143 mmol/L (136-145); CREATININE 0.96 mg/dL (0.55-1.02); MAGNESIUM 1.9 mg/dL (1.7-2.9); SODIUM 142 mmol/L (136-145); TOTAL PROTEIN 7.4 g/dL (6.4-8.2); eGFR NON BLACK RACES > 60 (>60)
[2020-07-18] MEDS ORDERED: GLUCOPHAGE ONE (06:05)
[2020-07-18] MEDS: GLUCOPHAGE PO SCH ×2 (06:09→21:07)
[2020-07-18] MEDS: SYNTHROID 88 mcg TAB PO SCH (06:09)
[2020-07-18] MEDS ORDERED: LEXAPRO ONE (08:04)
[2020-07-18] MEDS: PATIENT'S HOME MEDICATION PO SCH ×2 (08:06→08:17)
[2020-07-18] MEDS: CATAPRES TAB 0.1 MG PO SCH ×2 (08:16→21:00)
[2020-07-18] MEDS: LEXAPRO PO SCH (08:16)
[2020-07-18] MEDS: COZAAR PO SCH (08:16)
[2020-07-18] MEDS: NORVASC TAB 10 MG PO SCH (08:17)
--- NOTE | 2020-07-18 10:55 | PCM.PROG ---
Progress Note - Progress Note for Day of Date of Exam: 07/18/20 - Subjective Subjective: WAS ADMITTED FOR ACUTE PULMONARY EMBOLIC DISEASE WITH SEVERAL THROMBI PRESENTE WITHIN SEGMENTAL AND SUBSEGMENTAL BRANCHES SUPPLYING THE RIGHT UPPER AND RIGHT LOWER LOBES. SHE WAS STARTED ON A HEPARIN DRIP. HER PMH INCLUDES DDD, HTN, DM II, HYPOTHYROIDISM, AND CHRONIC BACK PAIN. TODAY, SHE IS ALERT AND ORIENTED, LYING IN BED ON MORNING ROUNDS. SHE CONTINUES TO REPORT MILD PAIN TO THE LEFT LEG PAIN. A VENOUS DOPPLER WAS DONE OF BILATERAL LOWER EXTREMITIES, BUT WAS NEGATIVE FOR DVT. ON EXAMINATION, HEART IS REGULAR IN RATE AND RHYTHM. BILATERAL LUNGS ARE NOTED TO HAVE DIMINISHED LUNG SOUNDS THROUGHOUT. ABDOMEN IS ROUND, SOFT, AND NON-TENDER WITH NORMAL BOWEL SOUNDS IN ALL QUADR ANTS. LEFT LOWER EXTREMITY IS NOTED WITH TENDERNESS TO PALPATION. HER VITALS THIS MORNING ARE: 97.8-63-16-98%-157/69. LABS WERE OBTAINED. ABNORMAL LAB VALUES INCLUDE THE FOLLOWING: GLUCOSE 154, ALBUMIN 3.0. ARTIERIAL STUDY OF LOWER EXTREMITIES WAS DONE YESTERDAY AND IS NEGATIVE FOR OCCLUSION. SHE IS CURRENTLY RECEIVING: HEPARIN IV DRIP, POTASSIUM AND MAGNESIUM PROTOCOLS, XANAX 0.5-1MG PO BID PRN, NORVASC 10MG PO DAILY, CATAPRES 0.1MG/HR TD PATCH, VITAMIN D WEEKLY, LEXAPRO 10MG PO DAILY, NEURONTIN 300MG PO HS, SYNTHROID 88MCG PO DAILY, COZAAR 100MG PO DAILY, GLUCOPHAGE 500MG PO BIDWM, ZANAFLEX 4MG PO BID PRN, AND ULTRAM 50MG PO Q4-6H PRN. WE WILL CONTINUE WITH CURRENT PLAN OF CARE TODAY. VASCULAR SURGEON HAS SEEN PATIENT AND DOES NOT FEEL LIKE SURGICAL INTERVENTION IS NEEDED AT THIS TIME. OTHERWISE, WE WILL FOLLOW UP WITH AM LABS AND CONTINUE TO MONITOR. TIME SPENT ON CLINICAL ASSESSMENT, REVIEWING LABS AND IMAGING, DECISION MAKING, AND DOCUMENTATION GREATER THAN 45 MINUTES. - Past Medical Family Social History Past Med/Fam/Surg Hx: No changes since H&P Allergies: Allergies No Known Drug Allergies Allergy (Verified 07/13/20 12:23) - Review of Systems ROS: No change since H&P - Vital Signs and I&O's Vital Signs: Temperature 97.8 F Pulse Rate [Left Brachial] 60 Pulse Rate 65 Respiratory Rate 27 Blood Pressure [Right Arm] 192/78 Blood Pressure 114/56 O2 Sat by Pulse Oximetry 97 Intake and Output: Intake & Output 07/15/20 07/16/20 07/17/20 07/18/20 11:59 11:59 11:59 11:59 Intake Total 425 / 425 3310 / 3310 3096 / 3096 Output Total 1000 / 1000 Balance 425 / 425 3310 / 3310 2095 / 2095 - Physical Exam Oriented: Normal, Time, Person, Place Eyes: Normal Ear: Normal Nose: Normal Throat: Normal Respiratory: Generalized, Diminished Cardiovascular: Normal (Regular rate and rhythm) : Normal Auscultation: Bowel Sounds: Normal Palpation: Normal Tenderness: Normal Skin: Normal Musculoskeletal: Left, Leg, Tender Psychiatric: Normal Mood Description: Calm, Appropriate Affect: Normal Speech Pattern: Clear, Appropriate - Laboratory and Diagnostics Result Diagrams: 07/18/20 03:45 07/18/20 03:45 Labs: Laboratory WBC 9.4 X10^3/uL (3.6-10.0) 07/18/20 03:45 RBC 5.09 X10^6/uL (3.5-5.4) 07/18/20 03:45 Hgb 14.4 g/dL (12.0-16.0) 07/18/20 03:45 Hct 43.8 % (36.0-47.0) 07/18/20 03:45 MCV 86.1 fL (80.0-100.0) 07/18/20 03:45 MCH 28.3 pg (27.0-34.0) 07/18/20 03:45 MCHC 32.9 g/dL (33.0-35.0) L 07/18/20 03:45 RDW 14.9 % (11.6-16.5) 07/18/20 03:45 Plt Count 251 X10^3/uL (150.0-450.0) 07/18/20 03:45 MPV 7.9 fL (7.4-11.0) 07/18/20 03:45 Neut % (Auto) 76.9 % (42.0-75.0) H 07/18/20 03:45 Lymph % (Auto) 14.5 % (21.0-51.0) L 07/18/20 03:45 [place] % (Auto) 7.1 % (0.0-13.0) 07/18/20 03:45 Eos % (Auto) 0.5 % (0.9-2.9) L 07/18/20 03:45 Baso % (Auto) 1.0 % (0.2-1.0) 07/18/20 03:45 Neut # (Auto) 7.2 x10^3/uL (2.2-4.8) H 07/18/20 03:45 Lymph # (Auto) 1.4 X10^3/uL (1.3-2.9) 07/18/20 03:45 [place] # (Auto) 0.7 x10^3/uL (0.3-0.8) 07/18/20 03:45 Eos # (Auto) 0.0 x10^3/uL (0.0-0.2) 07/18/20 03:45 Baso # (Auto) 0.1 X10^3/uL (0.0-0.1) 07/18/20 03:45 Absolute Nucleated RBC 0.1 /100WBC 07/18/20 03:45 PT 13.1 SECONDS (11.8-14.3) 07/16/20 03:15 INR Target Range - 07/16/20 03:15 INR 1.04 (0.8-1.3) 07/16/20 03:15 APTT 82.4 SECONDS (22.9-36.5) H 07/18/20 10:10 PTT Comment - 07/18/20 10:10 D-Dimer 3.02 ug/ml (0.0-0.57) H* 07/15/20 21:35 Sodium 142 mmol/L (136-145) 07/18/20 03:45 Corrected Sodium 143 mmol/L (136-145) 07/18/20 03:45 Potassium 4.1 mmol/L (3.5-5.1) 07/18/20 03:45 Chloride 106 mmol/L (98-107) 07/18/20 03:45 Carbon Dioxide 30.4 mmol/L (21-32) 07/18/20 03:45 BUN 13 mg/dL (7-18) 07/18/20 03:45 Creatinine 0.96 mg/dL (0.55-1.02) 07/18/20 03:45 Est GFR (MDRD) Af Amer > 60 (>60) 07/18/20 03:45 Est GFR (MDRD) Non-Af > 60 (>60) 07/18/20 03:45 Glucose 154 mg/dL (65-99) H 07/18/20 03:45 POC Glucose (mg/dL) 144 mg/dL (65-99) H 07/17/20 20:18 Calcium 8.7 mg/dL (8.5-10.1) 07/18/20 03:45 Corrected Calcium 9.5 mg/dL (8.5-10.1) 07/18/20 03:45 Magnesium 1.9 mg/dL (1.7-2.9) 07/18/20 03:45 Total Bilirubin 0.30 mg/dL (0.2-1.0) 07/18/20 03:45 AST 20 Units/L (15-37) 07/18/20 03:45 ALT 20 Units/L (12-78) 07/18/20 03:45 Alkaline Phosphatase 87 Units/L (46-116) 07/18/20 03:45 Total Protein 7.4 g/dL (6.4-8.2) 07/18/20 03:45 Albumin 3.0 g/dL (3.4-5.0) L 07/18/20 03:45 Globulin 4.4 g/dL (2.5-4.5) 07/18/20 03:45 Albumin/Globulin Ratio 0.7 Ratio (1.1-2.1) L 07/18/20 03:45 Specimen Type Clean catch urine 07/16/20 12:30 Urine Color Dark yellow (YELLOW) 07/16/20 12:30 Urine Appearance Hazy (CLEAR) 07/16/20 12:30 Urine pH 5.0 (5.0 - 8.0) 07/16/20 12:30 Ur Specific [place] 1.020 (1.000-1.030) 07/16/20 12:30 Urine Protein 2+ (NEGATIVE) 07/16/20 12:30 Urine Glucose (UA) Negative (NEGATIVE) 07/16/20 12:30 Urine Ketones Negative (NEGATIVE) 07/16/20 12:30 Urine Occult Blood 5+ (NEGATIVE) 07/16/20 12:30 Urine Nitrite Negative (NEGATIVE) 07/16/20 12:30 Urine Bilirubin Negative (NEGATIVE) 07/16/20 12:30 Urine Urobilinogen 1+ (NORMAL) 07/16/20 12:30 Ur Leukocyte Esterase Negative (NEGATIVE) 07/16/20 12:30 Urine RBC 20-30 /HPF (0-3) A 07/16/20 12:30 Urine WBC 0-2 /HPF (0-5) 07/16/20 12:30 Ur Squamous Epith Cells Few /HPF (NEGATIVE) 07/16/20 12:30 Urine Bacteria Negative /HPF (NEGATIVE) 07/16/20 12:30 Urine Mucus Rare /HPF (NEGATIVE) 07/16/20 12:30 Ur Culture Indicated? No/not indicated 07/16/20 12:30 SARS CoV-2 RNA Rapid BOBBY Negative (NEGATIVE) 07/16/20 02:50 - Plan (1) Pulmonary embolism Status: Acute Qualifiers: Pulmonary embolism type: unspecified Chronicity: acute Acute cor pulmonale presence: unspecified Qualified Code(s): I26.99 - Other pulmonary embolism without acute cor pulmonale Plan: HEPARIN IV DRIP, POTASSIUM AND MAGNESIUM PROTOCOLS, XANAX 0.5-1MG PO BID PRN, NORVASC 10MG PO DAILY, CATAPRES 0.1MG/HR TD PATCH, VITAMIN D WEEKLY, LEXAPRO 10MG PO DAILY, NEURONTIN 300MG PO HS, SYNTHROID 88MCG PO DAILY, COZAAR 100MG PO DAILY, GLUCOPHAGE 500MG PO BIDWM, ZANAFLEX 4MG PO BID PRN, AND ULTRAM 50MG PO Q4-6H PRN.
[2020-07-18] MEDS: XANAX PO PRN (21:00)
[2020-07-18] MEDS: NEURONTIN CAP 300 MG PO SCH (21:00)
--- NOTE | 2020-07-18 23:34 | NOTE.SOAP ---
Soap Note Note for Day of Date of Exam: 07/18/20 Subjective Data Subjective Data: Patient treated for pulmonary embolism. Clot burden noted to be low. Cardiac echo shows no evidence of right heart strain.Lower extremity Venous ultrrasound studies showed no evidence DVT. Objective Data Pulse Rate: 71 Respiratory Rate: 33 Blood Pressure: 140/73 O2 Sat by Pulse Oximetry: 100 Objective Data: Pain in her back is improved. Lower extremity duplex study and Ankle brachial indices were normal.Cardiac echo is normal no evidence of right heart strain Assessment Assessment: Small pulmonary emboli. Plan Plan: Patient is not a candidate for urgent thrombolysis. No evidence of deep venous thrombosis. The clot had to originate from somewhere. She had complained of right leg pain prior to the back pain. Would recommend proceeding with PO anticoagulation of your choice. Please make patient a follow-up appointment for me in the future to consider venogram and study of lower extremities.
[2020-07-19] MEDS: HEPARIN SODIUM IN D5W 25,000 UNITS/500 ML BAG IV PRN (01:39)
[2020-07-19 05:11] LABS: BASOPHILS # (AUTO) 0.1 X10^3/uL (0.0-0.1); BASOPHILS % (AUTO) 0.8 % (0.2-1.0); EOSINOPHILS % (AUTO) 0.4 % (0.9-2.9); HEMOGLOBIN 14.2 g/dL (12.0-16.0); LYMPHOCYTES # (AUTO) 1.3 X10^3/uL (1.3-2.9); LYMPHOCYTES % (AUTO) 15.5 % (21.0-51.0); MEAN CORPUSCULAR HEMOGLOBIN 28.4 pg (27.0-34.0); MEAN CORPUSCULAR HGB CONC 33.1 g/dL (33.0-35.0); MEAN CORPUSCULAR VOLUME 85.8 fL (80.0-100.0); MEAN PLATELET VOLUME 8.7 fL (7.4-11.0); MONOCYTES # (AUTO) 0.6 x10^3/uL (0.3-0.8); MONOCYTES % (AUTO) 6.7 % (0.0-13.0); NEUTROPHILS # (AUTO) 6.7 x10^3/uL (2.2-4.8); NEUTROPHILS % (AUTO) 76.6 % (42.0-75.0); PLATELET COUNT 251 X10^3/uL (150.0-450.0); RED BLOOD COUNT 5.01 X10^6/uL (3.5-5.4); RED CELL DISTRIBUTION WIDTH 14.9 % (11.6-16.5); WHITE BLOOD COUNT 8.7 X10^3/uL (3.6-10.0)
[2020-07-19 05:17] LABS: ALANINE AMINOTRANSFERASE 30 Units/L (12-78); ALKALINE PHOSPHATASE 83 Units/L (46-116); ASPARTATE AMINO TRANSFERASE 27 Units/L (15-37); BLOOD UREA NITROGEN 13 mg/dL (7-18); CALCIUM 8.8 mg/dL (8.5-10.1); CHLORIDE 106 mmol/L (98-107); COR CA(FOR HYPOALB) 9.6 mg/dL (8.5-10.1); COR NA(FOR HYPERGLY) 144 mmol/L (136-145); CREATININE 0.98 mg/dL (0.55-1.02); MAGNESIUM 1.9 mg/dL (1.7-2.9); SODIUM 143 mmol/L (136-145); TOTAL PROTEIN 7.3 g/dL (6.4-8.2); eGFR NON BLACK RACES 60 (>60)
[2020-07-19] MEDS ORDERED: GLUCOPHAGE ONE ×2 (06:03→19:23)
[2020-07-19] MEDS: SYNTHROID 88 mcg TAB PO SCH (06:08)
[2020-07-19] MEDS: GLUCOPHAGE PO SCH ×2 (06:08→19:20)
[2020-07-19] MEDS ORDERED: LEXAPRO ONE (08:40)
[2020-07-19] MEDS: PATIENT'S HOME MEDICATION PO SCH (09:00)
[2020-07-19] MEDS: LEXAPRO PO SCH (09:01)
[2020-07-19] MEDS: CATAPRES TAB 0.1 MG PO SCH ×2 (09:01→22:04)
[2020-07-19] MEDS: COZAAR PO SCH (09:04)
[2020-07-19] MEDS: NORVASC TAB 10 MG PO SCH (09:04)
--- NOTE | 2020-07-19 10:23 | PCM.PROG ---
Progress Note - Progress Note for Day of Date of Exam: 07/19/20 - Subjective Subjective: WAS ADMITTED FOR ACUTE PULMONARY EMBOLIC DISEASE WITH SEVERAL THROMBI PRESENT WITHIN SEGMENTAL AND SUBSEGMENTAL BRANCHES SUPPLYING THE RIGHT UPPER AND RIGHT LOWER LOBES. SHE REMAINS IN THE INTENSIVE CARE UNIT ON A HEPARIN DRIP. HER PMH INCLUDES DDD, HTN, DM II, HYPOTHYROIDISM, AND CHRONIC BACK PAIN. TODAY, SHE IS ALERT AND ORIENTED, LYING IN BED ON MORNING ROUNDS. SHE CONTINUES TO REPORT SHORTNESS OF BREATH AT TIMES. SHE ALSO REPORTS DRY MOUTH AND BITTER TASTE IN MOUTH. ON EXAMINATION, HEART IS REGULAR IN RATE AND RHYTHM. BILATERAL LUNGS ARE NOTED TO HAVE DIMINISHED LUNG SOUNDS THROUGHOUT. ABDOMEN IS ROUND, SOFT, AND NON-TENDER WITH NORMAL BOWEL SOUNDS IN ALL QUADRANTS. LEFT LOWER EXTREMITY IS NOTED WITH TENDERNESS TO PALPATION. HER VITALS THIS MORNING ARE: 97.7-51-20-100%-162/71. LABS WERE OBTAINED. ABNORMAL LAB VALUES INCLUDE THE FOLLOWING: GLUCOSE 147, ALBUMIN 3.0. SHE IS CURRENTLY RECEIVING: HEPARIN IV DRIP, POTASSIUM AND MAGNESIUM PROTOCOLS, XANAX 0.5-1MG PO BID PRN, NORVASC 10MG PO DAILY, CATAPRES 0.1MG/HR TD PATCH, VITAMIN D WEEKLY, LEXAPRO 10MG PO DAILY, NEURONTIN 300MG PO HS, SYNTHROID 88MCG PO DAILY, COZAAR 100MG PO DAILY, GLUCOPHAGE 500MG PO BIDWM, ZANAFLEX 4MG PO BID PRN, AND ULTRAM 50MG PO Q4-6H PRN. TODAY, WE WILL DISCONTINUE THE HEPARIN AND START ELIQUIS 10MG PO BID. WE WILL ALSO START PEPCID 20MG IV BID, PROTONIX 40MG IV BID, AND GI COCKTAIL 15MG PO QID. OTHERWISE, WE WILL FOLLOW UP WITH AM LABS AND CONTINUE TO MONITOR. TIME SPENT ON CLINICAL ASSESSMENT, REVIEWING LABS AND IMAGING, DECISION MAKING, AND DOCUMENTATION GREATER THAN 45 MINUTES. - Past Medical Family Social History Past Med/Fam/Surg Hx: No changes since H&P Allergies: Allergies No Known Drug Allergies Allergy (Verified 07/13/20 12:23) - Review of Systems ROS: No change since H&P - Vital Signs and I&O's Vital Signs: Temperature 97.7 F Pulse Rate [Left Brachial] 60 Pulse Rate 51 Respiratory Rate 20 Blood Pressure [Right Arm] 192/78 Blood Pressure 162/71 O2 Sat by Pulse Oximetry 100 Intake and Output: Intake & Output 07/16/20 07/17/20 07/18/20 07/19/20 11:59 11:59 11:59 11:59 Intake Total 425 / 425 3310 / 3310 3096 / 3096 2626 / 2626 Output Total 1000 / 1000 Balance 425 / 425 3310 / 3310 2096 / 2096 262 / 2626 - Physical Exam Oriented: Normal, Time, Person, Place Eyes: Normal Ear: Normal Nose: Normal Throat: Normal Respiratory: Generalized, Diminished Cardiovascular: Normal (Regular rate and rhythm) : Normal Auscultation: Bowel Sounds: Normal Palpation: Normal Tenderness: Normal Skin: Normal Musculoskeletal: Left, Leg, Tender Psychiatric: Normal Mood Description: Calm, Appropriate Affect: Normal Speech Pattern: Clear, Appropriate - Laboratory and Diagnostics Result Diagrams: 07/19/20 04:15 07/19/20 04:15 Labs: Laboratory WBC 8.7 X10^3/uL (3.6-10.0) 07/19/20 04:15 RBC 5.01 X10^6/uL (3.5-5.4) 07/19/20 04:15 Hgb 14.2 g/dL (12.0-16.0) 07/19/20 04:15 Hct 43.0 % (36.0-47.0) 07/19/20 04:15 MCV 85.8 fL (80.0-100.0) 07/19/20 04:15 MCH 28.4 pg (27.0-34.0) 07/19/20 04:15 MCHC 33.1 g/dL (33.0-35.0) 07/19/20 04:15 RDW 14.9 % (11.6-16.5) 07/19/20 04:15 Plt Count 251 X10^3/uL (150.0-450.0) 07/19/20 04:15 Plt Count Comment Cancelled 07/19/20 04:15 MPV 8.7 fL (7.4-11.0) 07/19/20 04:15 Neut % (Auto) 76.6 % (42.0-75.0) H 07/19/20 04:15 Lymph % (Auto) 15.5 % (21.0-51.0) L 07/19/20 04:15 [place] % (Auto) 6.7 % (0.0-13.0) 07/19/20 04:15 Eos % (Auto) 0.4 % (0.9-2.9) L 07/19/20 04:15 Baso % (Auto) 0.8 % (0.2-1.0) 07/19/20 04:15 Neut # (Auto) 6.7 x10^3/uL (2.2-4.8) H 07/19/20 04:15 Lymph # (Auto) 1.3 X10^3/uL (1.3-2.9) 07/19/20 04:15 [place] # (Auto) 0.6 x10^3/uL (0.3-0.8) 07/19/20 04:15 Eos # (Auto) 0.0 x10^3/uL (0.0-0.2) 07/19/20 04:15 Baso # (Auto) 0.1 X10^3/uL (0.0-0.1) 07/19/20 04:15 Absolute Nucleated RBC 0.1 /100WBC 07/19/20 04:15 Nucleated RBCs Cancelled 07/19/20 04:15 Atypical Lymphocytes Cancelled 07/19/20 04:15 Blast Cells Cancelled 07/19/20 04:15 Smudge Cells Cancelled 07/19/20 04:15 Toxic Granulation Cancelled 07/19/20 04:15 Dohle Bodies Cancelled 07/19/20 04:15 [place] Rods Cancelled 07/19/20 04:15 Plt Clumps, EDTA Cancelled 07/19/20 04:15 Giant Platelets Cancelled 07/19/20 04:15 Plt Morphology Comment Cancelled 07/19/20 04:15 RBC Morphology Cancelled 07/19/20 04:15 Dimorphic RBCs Cancelled 07/19/20 04:15 Polychromasia Cancelled 07/19/20 04:15 Hypochromasia Cancelled 07/19/20 04:15 Poikilocytosis Cancelled 07/19/20 04:15 Basophilic Stippling Cancelled 07/19/20 04:15 Anisocytosis Cancelled 07/19/20 04:15 Microcytosis Cancelled 07/19/20 04:15 Macrocytosis Cancelled 07/19/20 04:15 Spherocytes Cancelled 07/19/20 04:15 Pappenheimer Bodies Cancelled 07/19/20 04:15 Sickle Cells Cancelled 07/19/20 04:15 Target Cells Cancelled 07/19/20 04:15 Tear Drop Cells Cancelled 07/19/20 04:15 Ovalocytes Cancelled 07/19/20 04:15 Stomatocytes Cancelled 07/19/20 04:15 Helmet Cells Cancelled 07/19/20 04:15 [place] Bodies Cancelled 07/19/20 04:15 [place] Rings Cancelled 07/19/20 04:15 [place] Cells Cancelled 07/19/20 04:15 Crenated Cell Cancelled 07/19/20 04:15 Acanthocytes (Spur) Cancelled 07/19/20 04:15 Rouleaux Cancelled 07/19/20 04:15 Schistocytes Cancelled 07/19/20 04:15 PT 13.1 SECONDS (11.8-14.3) 07/16/20 03:15 INR Target Range - 07/16/20 03:15 INR 1.04 (0.8-1.3) 07/16/20 03:15 APTT 84.4 SECONDS (22.9-36.5) H 07/19/20 04:15 PTT Comment - 07/19/20 04:15 D-Dimer 3.02 ug/ml (0.0-0.57) H* 07/15/20 21:35 Sodium 143 mmol/L (136-145) 07/19/20 04:15 Corrected Sodium 144 mmol/L (136-145) 07/19/20 04:15 Potassium 3.8 mmol/L (3.5-5.1) 07/19/20 04:15 Chloride 106 mmol/L (98-107) 07/19/20 04:15 Carbon Dioxide 29.0 mmol/L (21-32) 07/19/20 04:15 BUN 13 mg/dL (7-18) 07/19/20 04:15 Creatinine 0.98 mg/dL (0.55-1.02) 07/19/20 04:15 Est GFR (MDRD) Af Amer > 60 (>60) 07/19/20 04:15 Est GFR (MDRD) Non-Af 60 (>60) 07/19/20 04:15 Glucose 147 mg/dL (65-99) H 07/19/20 04:15 POC Glucose (mg/dL) 166 mg/dL (65-99) H 07/18/20 20:08 Calcium 8.8 mg/dL (8.5-10.1) 07/19/20 04:15 Corrected Calcium 9.6 mg/dL (8.5-10.1) 07/19/20 04:15 Magnesium 1.9 mg/dL (1.7-2.9) 07/19/20 04:15 Total Bilirubin 0.30 mg/dL (0.2-1.0) 07/19/20 04:15 AST 27 Units/L (15-37) 07/19/20 04:15 ALT 30 Units/L (12-78) 07/19/20 04:15 Alkaline Phosphatase 83 Units/L (46-116) 07/19/20 04:15 Total Protein 7.3 g/dL (6.4-8.2) 07/19/20 04:15 Albumin 3.0 g/dL (3.4-5.0) L 07/19/20 04:15 Globulin 4.3 g/dL (2.5-4.5) 07/19/20 04:15 Albumin/Globulin Ratio 0.7 Ratio (1.1-2.1) L 07/19/20 04:15 Specimen Type Clean catch urine 07/16/20 12:30 Urine Color Dark yellow (YELLOW) 07/16/20 12:30 Urine Appearance Hazy (CLEAR) 07/16/20 12:30 Urine pH 5.0 (5.0 - 8.0) 07/16/20 12:30 Ur Specific [place] 1.020 (1.000-1.030) 07/16/20 12:30 Urine Protein 2+ (NEGATIVE) 07/16/20 12:30 Urine Glucose (UA) Negative (NEGATIVE) 07/16/20 12:30 Urine Ketones Negative (NEGATIVE) 07/16/20 12:30 Urine Occult Blood 5+ (NEGATIVE) 07/16/20 12:30 Urine Nitrite Negative (NEGATIVE) 07/16/20 12:30 Urine Bilirubin Negative (NEGATIVE) 07/16/20 12:30 Urine Urobilinogen 1+ (NORMAL) 07/16/20 12:30 Ur Leukocyte Esterase Negative (NEGATIVE) 07/16/20 12:30 Urine RBC 20-30 /HPF (0-3) A 07/16/20 12:30 Urine WBC 0-2 /HPF (0-5) 07/16/20 12:30 Ur Squamous Epith Cells Few /HPF (NEGATIVE) 07/16/20 12:30 Urine Bacteria Negative /HPF (NEGATIVE) 07/16/20 12:30 Urine Mucus Rare /HPF (NEGATIVE) 07/16/20 12:30 Ur Culture Indicated? No/not indicated 07/16/20 12:30 SARS CoV-2 RNA Rapid BOBBY Negative (NEGATIVE) 07/16/20 02:50 - Plan (1) Pulmonary embolism Status: Acute Qualifiers: Pulmonary embolism type: unspecified Chronicity: acute Acute cor pulmonale presence: unspecified Qualified Code(s): I26.99 - Other pulmonary embolism without acute cor pulmonale Plan: ELIQUIS 10MG PO BID, PEPCID 20MG IV BID, PROTONIX 40MG IV BID, GI COCKTAIL 15MG PO QID, POTASSIUM AND MAGNESIUM PROTOCOLS, XANAX 0.5-1MG PO BID PRN, NORVASC 10MG PO DAILY, CATAPRES 0.1MG/HR TD PATCH, VITAMIN D WEEKLY, LEXAPRO 10MG PO DAILY, NEURONTIN 300MG PO HS, SYNTHROID 88MCG PO DAILY, COZAAR 100MG PO DAILY, GLUCOPHAGE 500MG PO BIDWM, ZANAFLEX 4MG PO BID PRN, AND ULTRAM 50MG PO Q4 -6H PRN.
[2020-07-19] MEDS: ELIQUIS PO SCH ×2 (14:20→22:46)
[2020-07-19] MEDS: PROTONIX INJ 40 MG VIAL IVP SCH ×2 (14:20→22:05)
[2020-07-19] MEDS: PEPCID 20 MG IV PREMIX* 20 MG/50 ML BAG IV SCH ×2 (14:20→22:05)
[2020-07-19] MEDS: LEVSIN/MAALOX/LIDOC VISC PO SCH ×4 (19:17→22:04)
[2020-07-19] MEDS ORDERED: ELIQUIS PO SCH (21:00)
[2020-07-19] MEDS: NEURONTIN CAP 300 MG PO SCH (22:04)
[2020-07-19] MEDS: XANAX PO PRN (22:06)
[2020-07-20 05:23] LABS: BASOPHILS # (AUTO) 0.1 X10^3/uL (0.0-0.1); BASOPHILS % (AUTO) 0.8 % (0.2-1.0); EOSINOPHILS % (AUTO) 0.5 % (0.9-2.9); HEMATOCRIT 41.8 % (36.0-47.0); HEMOGLOBIN 13.9 g/dL (12.0-16.0); LYMPHOCYTES # (AUTO) 1.3 X10^3/uL (1.3-2.9); MEAN CORPUSCULAR HEMOGLOBIN 28.5 pg (27.0-34.0); MEAN CORPUSCULAR HGB CONC 33.2 g/dL (33.0-35.0); MEAN CORPUSCULAR VOLUME 85.8 fL (80.0-100.0); MEAN PLATELET VOLUME 8.3 fL (7.4-11.0); MONOCYTES # (AUTO) 0.6 x10^3/uL (0.3-0.8); NEUTROPHILS # (AUTO) 6.1 x10^3/uL (2.2-4.8); NEUTROPHILS % (AUTO) 74.7 % (42.0-75.0); PLATELET COUNT 251 X10^3/uL (150.0-450.0); RED BLOOD COUNT 4.87 X10^6/uL (3.5-5.4); RED CELL DISTRIBUTION WIDTH 15.1 % (11.6-16.5); WHITE BLOOD COUNT 8.1 X10^3/uL (3.6-10.0)
[2020-07-20 05:31] LABS: ALANINE AMINOTRANSFERASE 47 Units/L (12-78); ALBUMIN 2.9 g/dL (3.4-5.0); ALKALINE PHOSPHATASE 80 Units/L (46-116); ASPARTATE AMINO TRANSFERASE 36 Units/L (15-37); BLOOD UREA NITROGEN 14 mg/dL (7-18); CARBON DIOXIDE 29.9 mmol/L (21-32); CHLORIDE 107 mmol/L (98-107); COR CA(FOR HYPOALB) 9.9 mg/dL (8.5-10.1); COR NA(FOR HYPERGLY) 145 mmol/L (136-145); CREATININE 1.01 mg/dL (0.55-1.02); SODIUM 144 mmol/L (136-145); TOTAL PROTEIN 7.1 g/dL (6.4-8.2); eGFR NON BLACK RACES 58 (>60)
[2020-07-20] MEDS ORDERED: GLUCOPHAGE ONE (05:50)
[2020-07-20] MEDS: SYNTHROID 88 mcg TAB PO SCH (06:15)
[2020-07-20] MEDS: GLUCOPHAGE PO SCH (06:15)
[2020-07-20] MEDS ORDERED: LEXAPRO ONE (08:30)
[2020-07-20] MEDS: LEXAPRO PO SCH (08:34)
[2020-07-20] MEDS: CATAPRES TAB 0.1 MG PO SCH (08:34)
[2020-07-20] MEDS: LEVSIN/MAALOX/LIDOC VISC PO SCH (08:35)
[2020-07-20] MEDS: COZAAR PO SCH (08:35)
[2020-07-20] MEDS: ELIQUIS PO SCH (08:35)
[2020-07-20] MEDS: PROTONIX INJ 40 MG VIAL IVP SCH (08:36)
[2020-07-20] MEDS: NORVASC TAB 10 MG PO SCH (08:36)
[2020-07-20] MEDS: PATIENT'S HOME MEDICATION PO SCH (08:36)
[2020-07-20] MEDS: PEPCID 20 MG IV PREMIX* 20 MG/50 ML BAG IV SCH (08:36)
[2020-07-20 13:36] VITALS: BP 143/70
== END 2020-07-20 12:00 | disposition home or self-care (01) | DRG 176 ==
LOC: ER 18:01 → ICU 07-16 03:33
PROVIDERS: ADMIT Internal Medicine; ATTEND Internal Medicine
DX: I10 Essential (primary) hypertension; K44.9 Diaphragmatic hernia without obstruction or gangrene; E03.8 Other specified hypothyroidism; Z20.822 Contact with and (suspected) exposure to COVID-19; I26.99 Other pulmonary embolism without acute cor pulmonale; E11.65 Type 2 diabetes mellitus with hyperglycemia; R79.1 Abnormal coagulation profile; M25.552 Pain in left hip; M54.41 Lumbago with sciatica, right side

== ENCOUNTER 2021-09-24 12:26 | Inpatient (IN) ==
[2021-09-24] MEDS ORDERED: ZOFRAN INJ 4 MG VIAL IVP ONE ×2 (12:57→16:06)
[2021-09-24] MEDS ORDERED: NS 500 ML IV 500 ML IV ONE (12:57)
--- NOTE | 2021-09-24 12:57 | DR.NAUSEAF ---
HPI Time Seen Time Seen by Provider: 09/24/21 12:56 Primary Care Physician Primary Care Physician: DESI Complaints Chief Complaint Doctors Comments: 71 y/o female presents for evaluation. Started with abdominal pain, nausea and vomiting 2 days ago. Symptoms worse since this am. + vomiting, yellow emesis. + diffuse abdominal pain, sharp, does not ra diate. + worse with palpation, nothing makes it better. No BM x 2 days. Abdomen more distended. No fever, chills, urinary issues, congestion or coughing. + weakness. Chief Complaint:: PT AMBULATORY IN TRIAGE C/O OF NAUSEA AND VOMITING AND WEAK THAT STARTED THIS MORNING. PT ALSO STATES SHE HASNT HAD A BOWL MOVEMENT SINCE THURSDAY. PT C/O OF ABD PAIN ALL OVER. COVID-19 Coronavirus risk:travel/contact w/high risk person: No Has patient experienced Coronavirus symptoms: No Reviewed Nurses Notes Reviewed: Yes Source History Provided: Patient Mode of Arrival Mode of Arrival: Ambulatory Timing Onset of Chief Complaint: 09/24/21 PMH PMH Past Medical History: Yes Past Medical History: Diabetes, Dyslipidemia, Hypertension and Hypothyroidism Past Surgical History: Yes Surgical History: Hysterectomy and Other Family History History of Family Medical Conditions: Yes Family Medical History: Diabetes Mellitus, Coronary Artery Disease and Hypertension Social History Does patient currently use any type of tobacco product: No Have you used tobacco products in the last 12 months: No Type of Tobacco Use: None Does any household member use tobacco: No Alcohol Use: None Do you use any recreational Drugs:: No Lives With: Family Lives Where: Home Travel Risk Coronavirus risk:travel/contact w/high risk person: No Has patient experienced Coronavirus symptoms: No Infectious screening In the last 2 months have you had wt loss of >10#?: NO Have you had fever, night sweats or hemotysis?: No Have you traveled outside the country in the last 6 months?: No Isolation: Standard ROS Review of Systems Constitutional: Weakness Eyes: No Symptoms Reported ENTM: No Symptoms Reported Respiratoy: No Symptoms Reported Cardiovascular: No Symptoms Reported Gastrointestinal/Abdominal: Abdominal Pain, Constipation, Nausea and Vomiting Genitourinary: No Symptoms Reported Neurological: No Symptoms Reported Musculoskeletal: No Symptoms Reported Integumentary: No Symptoms Reported Hematologic/Lymphatic: No Symptoms Reported Psychiatric: No Symptoms Reported All Other Systems: Reviewed and Negative PE Vital Signs Vitals: Temperature 98.2 F Pulse Rate 92 Respiratory Rate 21 Blood Pressure [Right Arm] 160/72 Blood Pressure 212/95 O2 Sat by Pulse Oximetry 97 General General Appearance: Alert and In No Apparent Distress Eyes Eye exam: PERRL and EOMI Neck Neck Exam: Normal Inspection and Full ROM; negative Tenderness Respiratory Respiratory Exam: Normal Lung Sounds Bilat; negative Accessory Muscle Use or Respiratory Distress Cardiovascular Cardiovascular Exam: Regular Rate, Normal Rhythm and Normal Heart Sounds Abdominal Exam Abdominal Exam: Soft and Tenderness (all quadrants, with degree of guarding and rebound. + decreased bowel sounds.) Extremities Extremities Exam: Normal Inspection Neurologic Neurological Exam: Alert, Oriented X3 and CN II-XII Intact; negative Motor Sensory Deficit Psychiatric Psychiatric Exam: Normal Affect Skin Skin Exam: Warm and Dry MDM Differential Diagnosis Differential Diagnosis: Considerations may Include:: Bowel Obstruction, Cholecystitis, Gastritis, Gastroenteritis, Pancreatitis and Other (diverticulit is) COURSE Treatment Treatment: 71 y/o female with 2 days of diffuse abdominal pain, nausea and vomiting. No BM x 2 days. W/u initiated. Pt given IV fluids, IV zofran. Given IV morphine for pain. IV hydralazine for her elevated BP. 1607 - Some improvement, still with pain. BP better. W/u c/w acute pancreatitis (lipase 900+, CT with inflammation/edema of pancreas, with underlying cysts). Informed pt of need for admission. Troponin slightly elevated, doubt enrollment representative of [place]. Will repeat troponin. Will discuss with her attending, Dr Priest. 1722 - discussed with Dr Priest. [facility]OR Labs Reviewed Laboratory Results Reviewed?: Yes Result Diagrams: 09/25/21 05:27 09/25/21 05:27 Laboratory: WBC 9.9 X10^3/uL (3.6-10.0) 09/24/21 13:45 RBC 5.39 X10^6/uL (3.5-5.4) 09/24/21 13:45 Hgb 15.2 g/dL (12.0-16.0) 09/24/21 13:45 Hct 44.8 % (36.0-47.0) 09/24/21 13:45 MCV 83.1 fL (80.0-100.0) 09/24/21 13:45 MCH 28.2 pg (27.0-34.0) 09/24/21 13:45 MCHC 33.9 g/dL (33.0-35.0) 09/24/21 13:45 RDW 14.7 % (11.6-16.5) 09/24/21 13:45 Plt Count 294 X10^3/uL (150.0-450.0) 09/24/21 13:45 MPV 7.8 fL (7.4-11.0) 09/24/21 13:45 Neut % (Auto) 83.1 % (42.0-75.0) H 09/24/21 13:45 Lymph % (Auto) 9.9 % (21.0-51.0) L 09/24/21 13:45 Oliver % (Auto) 6.3 % (0.0-13.0) 09/24/21 13:45 Eos % (Auto) 0.2 % (0.9-2.9) L 09/24/21 13:45 Baso % (Auto) 0.5 % (0.2-1.0) 09/24/21 13:45 Neut # (Auto) 8.2 x10^3/uL (2.2-4.8) H 09/24/21 13:45 Lymph # (Auto) 1.0 X10^3/uL (1.3-2.9) L 09/24/21 13:45 Oliver # (Auto) 0.6 x10^3/uL (0.3-0.8) 09/24/21 13:45 Eos # (Auto) 0.0 x10^3/uL (0.0-0.2) 09/24/21 13:45 Baso # (Auto) 0.0 X10^3/uL (0.0-0.1) 09/24/21 13:45 Absolute Nucleated RBC 0.0 /100WBC 09/24/21 13:45 Sodium 138 mmol/L (136-145) 09/24/21 13:45 Corrected Sodium 141 mmol/L (136-145) 09/24/21 13:45 Potassium 3.2 mmol/L (3.5-5.1) L 09/24/21 13:45 Chloride 98 mmol/L (98-107) 09/24/21 13:45 Carbon Dioxide 25.8 mmol/L (21-32) 09/24/21 13:45 BUN 7 mg/dL (7-18) 09/24/21 13:45 Creatinine 1.02 mg/dL (0.55-1.02) 09/24/21 13:45 Est GFR (MDRD) Af Amer > 60 (>60) 09/24/21 13:45 Est GFR (MDRD) Non-Af 57 (>60) L 09/24/21 13:45 Glucose 212 mg/dL (65-99) H 09/24/21 13:45 Calcium 9.1 mg/dL (8.5-10.1) 09/24/21 13:45 Corrected Calcium TNP 09/24/21 13:45 Total Bilirubin 0.50 mg/dL (0.2-1.0) 09/24/21 13:45 AST 17 Units/L (15-37) 09/24/21 13:45 ALT 21 Units/L (12-78) 09/24/21 13:45 Alkaline Phosphatase 127 Units/L (46-116) H 09/24/21 13:45 Creatine Kinase 125 Units/L (26-192) 09/24/21 13:45 Troponin I High Sens 71.7 ng/L (4.0-60.0) H* 09/24/21 13:45 Total Protein 9.1 g/dL (6.4-8.2) H 09/24/21 13:45 Albumin 3.7 g/dL (3.4-5.0) 09/24/21 13:45 Globulin 5.4 g/dL (2.5-4.5) H 09/24/21 13:45 Albumin/Globulin Ratio 0.7 Ratio (1.1-2.1) L 09/24/21 13:45 Lipase 944 Units/L (73-393) H 09/24/21 13:45 SARS-CoV-2 (PCR) Negative (NEGATIVE) 09/24/21 16:05 EKG Rate: 84 [place]: Normal Rhythm: NSR Block: None Hypertrophy: None ST: Nonsp Opioid Opioid Risk Tool Age (Philippe box if 16-45): No History of Preadolescent Sexual Abuse: No Total: 0 Total Score Risk Category: Low Risk Copyright: Brayan WYLIE predicting aberrant behaviors Discharge Plan Diagnosis Discharge Problem: Acute pancreatitis Discharge Plan Patient Disposition: 01 HOME, SELF-CARE Condition: Stable Orders to Discharge Patient Discharge Orders: Discharge (Routine); Ordered 09/25/21 Ordered By: Sheldon Panda Discharge by Transfer to Outside Facility (Routine); Ordered 09/25/21 Ordered By: Sheldon Panda
[2021-09-24] MEDS ORDERED: NS 1,000 ML IV 1,000 ML ONE (13:06)
[2021-09-24] MEDS ORDERED: ZOFRAN INJ 4 MG VIAL ONE ×2 (13:06→16:12)
[2021-09-24] MEDS ORDERED: MORPHINE SULFATE INJ 4 MG IVP ONE (13:48)
[2021-09-24] MEDS ORDERED: APRESOLINE INJ 20 MG VIAL IVP ONE (13:48)
[2021-09-24] MEDS ORDERED: APRESOLINE INJ 20 MG VIAL ONE (13:54)
[2021-09-24] MEDS ORDERED: MORPHINE SULFATE INJ 4 MG ONE (13:55)
[2021-09-24 13:57] LABS: BASOPHILS % (AUTO) 0.5 % (0.2-1.0); EOSINOPHILS % (AUTO) 0.2 % (0.9-2.9); HEMATOCRIT 44.8 % (36.0-47.0); HEMOGLOBIN 15.2 g/dL (12.0-16.0); LYMPHOCYTES % (AUTO) 9.9 % (21.0-51.0); MEAN CORPUSCULAR HEMOGLOBIN 28.2 pg (27.0-34.0); MEAN CORPUSCULAR HGB CONC 33.9 g/dL (33.0-35.0); MEAN CORPUSCULAR VOLUME 83.1 fL (80.0-100.0); MEAN PLATELET VOLUME 7.8 fL (7.4-11.0); MONOCYTES # (AUTO) 0.6 x10^3/uL (0.3-0.8); MONOCYTES % (AUTO) 6.3 % (0.0-13.0); NEUTROPHILS # (AUTO) 8.2 x10^3/uL (2.2-4.8); NEUTROPHILS % (AUTO) 83.1 % (42.0-75.0); RED BLOOD COUNT 5.39 X10^6/uL (3.5-5.4); RED CELL DISTRIBUTION WIDTH 14.7 % (11.6-16.5); WHITE BLOOD COUNT 9.9 X10^3/uL (3.6-10.0)
--- NOTE | 2021-09-24 14:07 | RAD ---
ACUTE ABDOMEN SERIESHISTORY:vomiting, abd pain, distensionStudy: Frontal view of the chest, flat and upright views of the abdomenComparison:NoneFindings:Cardiomediastinal silhouette is normal in size .No focal consolidations, pleural effusions or pneumothorax.There is a normal bowel gas pattern.No free air..No abnormal calcifications or abnormal soft tissue shadows. No acute bony abnormalities.IMPRESSION:1.No acute cardiopulmonary disease.2.No evidence for acute abdominal pathology.Electronically signed by: CHERYL ALLEN (Sep 24, 2021 14:06:09)
[2021-09-24 14:26] LABS: ALANINE AMINOTRANSFERASE 21 Units/L (12-78); ALBUMIN 3.7 g/dL (3.4-5.0); ALKALINE PHOSPHATASE 127 Units/L (46-116); ASPARTATE AMINO TRANSFERASE 17 Units/L (15-37); BLOOD UREA NITROGEN 7 mg/dL (7-18); CALCIUM 9.1 mg/dL (8.5-10.1); CARBON DIOXIDE 25.8 mmol/L (21-32); CHLORIDE 98 mmol/L (98-107); COR NA(FOR HYPERGLY) 141 mmol/L (136-145); CREATINE KINASE 125 Units/L (26-192); CREATININE 1.02 mg/dL (0.55-1.02); LIPASE 944 Units/L (73-393); SODIUM 138 mmol/L (136-145); TOTAL PROTEIN 9.1 g/dL (6.4-8.2); eGFR NON BLACK RACES 57 (>60)
--- NOTE | 2021-09-24 16:00 | CT ---
HISTORYABD PAIN, N/V diabetes mellitus. Hypertension.STUDYABDOMEN/PELVIS WITH CONCOMPARISONCT abdomen and pelvis 07/13/2020TECHNIQUEMultiple CT axial images of the abdomen and pelvis were obtained with IV contrast. Coronal and sagittal images were reconstructed. Dose reduction techniques included Automated Exposure Control (AEC) and adjustment of mA and kV.FINDINGSNumerous tiny cysts are identified throughout the pancreas. Largest measures about 16 mm in the distal body of the pancreas. But most measure about 5-7 mm throughout the entire pancreas. There is no obvious solid mass.Numerous pancreatic cysts like this can be seen with von Hippel-Lindau syndrome. There are no renal cysts or hepatic cysts to suggest autosomal dominant polycystic disease.There is also possible peripancreatic edema, most notable in the body and tail. This might indicate acute pancreatitis.The lung bases are clear. Heart size is normal. Diffuse decreased density of the liver is compatible with hepatic steatosis. The liver has a normal size. Gallbladder, spleen, and adrenal glands are unremarkable.Stone lower pole right kidney measures about 5 mm. Renal enhancement is symmetric with no solid mass. There is no hydronephrosis or significant perirenal edema. The bladder is normally distended. It has no wall thickening or perivesical edema.There is a small hiatal hernia. The bowel is not dilated. There is no wall thickening in the bowel or edema around the bowel. A normal appendix is not identified. But there is no inflammation around the cecum or at the expected location of the appendix. There are diverticula in the colon. But there is no wall thickening or pericolonic edema to suggest acute diverticulitis.There are degenerative changes in the spine.IMPRESSION1. Findings suggesting acute pancreatitis2. Numerous tiny pancreatic cysts; recommend follow-up CT in 12 months3. Nonobstructing right renal calculus4. Hepatic steatosis5. Colonic diverticulaElectronically signed by: Tejinder Lopez (Sep 24, 2021 15:59:01)
[2021-09-24] MEDS ORDERED: DILAUDID INJ IVP ONE (16:06)
[2021-09-24] MEDS ORDERED: DILAUDID INJ ONE (16:12)
[2021-09-24] MEDS ORDERED: MAGNESIUM SULFATE 1 GRAM/100 mL PREMIX 1 G/100 ML BAG IV PRN (17:35)
[2021-09-24] MEDS ORDERED: POTASSIUM CHLORIDE LIQ 20 MEQ UDC PO PRN ×2 (17:35→18:17)
[2021-09-24] MEDS ORDERED: POTASSIUM CHL 60 MEQ/NS 0.45% 500 ML IV PRN ×2 (17:35→18:17)
[2021-09-24] MEDS ORDERED: POTASSIUM CHL 40 MEQ/NS 0.45% 500 ML IV PRN ×2 (17:35→18:17)
[2021-09-24] MEDS ORDERED: K-DUR TAB 20 MEQ PO PRN ×2 (17:35→18:17)
[2021-09-24] MEDS ORDERED: KLOR-CON PO PRN ×2 (17:35→18:17)
[2021-09-24] MEDS ORDERED: MICRO K EXTEN CAP 10 MEQ PO PRN ×2 (17:35→18:17)
[2021-09-24] MEDS ORDERED: K-RIDER 10 MEQ/NS 100 ML 10 MEQ/100 ML BAG IV PRN (17:35)
[2021-09-24] MEDS ORDERED: ULTRAM PO PRN (17:47)
[2021-09-24] MEDS ORDERED: CATAPRES TAB 0.1 MG PO PRN (17:47)
[2021-09-24] MEDS ORDERED: CATAPRES-TTS-3 TD SCH (18:00)
[2021-09-24 18:10] VITALS: BMI 36.7
[2021-09-24] MEDS ORDERED: GLUCOPHAGE ONE (20:56)
[2021-09-24] MEDS ORDERED: NORVASC TAB 10 MG PO SCH (21:00)
[2021-09-24] MEDS ORDERED: LIPITOR TAB 10 MG PO SCH (21:00)
[2021-09-24] MEDS: CARAFATE PO SCH (21:55)
[2021-09-24] MEDS: GLUCOPHAGE PO SCH (21:56)
[2021-09-24] MEDS: D5 1/2 NS 1,000 ML 1,000 ML IV SCH ×2 (21:57→22:14)
[2021-09-24] MEDS: ELIQUIS PO SCH (21:57)
[2021-09-24] MEDS: XANAX PO SCH (22:13)
[2021-09-24] MEDS: K-RIDER 10 MEQ/NS 100 ML 10 MEQ/100 ML BAG IV PRN (22:13)
[2021-09-24] MEDS: ZOFRAN INJ 4 MG VIAL IVP PRN (22:30)
[2021-09-24] MEDS: DILAUDID INJ IVP PRN (22:30)
[2021-09-25] MEDS: K-RIDER 10 MEQ/NS 100 ML 10 MEQ/100 ML BAG IV PRN ×3 (00:47→03:36)
[2021-09-25] MEDS: DILAUDID INJ IVP PRN ×2 (02:42→11:23)
[2021-09-25] MEDS: CARAFATE PO SCH ×2 (05:43→11:43)
[2021-09-25 06:01] LABS: BASOPHILS # (AUTO) 0.1 X10^3/uL (0.0-0.1); BASOPHILS % (AUTO) 0.7 % (0.2-1.0); EOSINOPHILS # (AUTO) 0.1 x10^3/uL (0.0-0.2); EOSINOPHILS % (AUTO) 0.5 % (0.9-2.9); HEMATOCRIT 45.5 % (36.0-47.0); HEMOGLOBIN 15.2 g/dL (12.0-16.0); LYMPHOCYTES # (AUTO) 1.2 X10^3/uL (1.3-2.9); LYMPHOCYTES % (AUTO) 11.1 % (21.0-51.0); MEAN CORPUSCULAR HGB CONC 33.4 g/dL (33.0-35.0); MEAN CORPUSCULAR VOLUME 83.8 fL (80.0-100.0); MEAN PLATELET VOLUME 7.9 fL (7.4-11.0); MONOCYTES # (AUTO) 0.9 x10^3/uL (0.3-0.8); MONOCYTES % (AUTO) 8.4 % (0.0-13.0); NEUTROPHILS # (AUTO) 8.7 x10^3/uL (2.2-4.8); NEUTROPHILS % (AUTO) 79.3 % (42.0-75.0); RED BLOOD COUNT 5.43 X10^6/uL (3.5-5.4)
[2021-09-25 06:17] LABS: ALANINE AMINOTRANSFERASE 20 Units/L (12-78); ALBUMIN 3.4 g/dL (3.4-5.0); ALKALINE PHOSPHATASE 122 Units/L (46-116); ASPARTATE AMINO TRANSFERASE 19 Units/L (15-37); BLOOD UREA NITROGEN 9 mg/dL (7-18); CARBON DIOXIDE 26.9 mmol/L (21-32); CHLORIDE 100 mmol/L (98-107); COR NA(FOR HYPERGLY) 139 mmol/L (136-145); CREATININE 0.92 mg/dL (0.55-1.02); LIPASE 317 Units/L (73-393); SODIUM 137 mmol/L (136-145); TOTAL PROTEIN 8.8 g/dL (6.4-8.2); eGFR NON BLACK RACES > 60 (>60)
[2021-09-25] MEDS ORDERED: GLUCOPHAGE ONE (06:54)
[2021-09-25] MEDS: GLUCOPHAGE PO SCH (08:59)
[2021-09-25] MEDS: ELIQUIS PO SCH (08:59)
[2021-09-25] MEDS ORDERED: CYMBALTA PO SCH (09:00)
[2021-09-25] MEDS ORDERED: LASIX PO SCH (09:00)
[2021-09-25] MEDS ORDERED: COZAAR PO SCH (09:00)
[2021-09-25] MEDS: XANAX PO SCH (09:00)
[2021-09-25] MEDS ORDERED: PROTONIX TAB 40 MG PO SCH (09:00)
--- NOTE | 2021-09-25 10:46 | DR.H&P ---
H&P - History & Physical for Day of: H&P Date: 09/24/21 - Chief Complaint Chief Complaint: ABDOMINAL PAIN - History of Present Illness History of Present Illness: IS A 71 YEAR OLD PATIENT OF OURS. SHE PRESENTED TO THE ER WITH COMPLAINTS OF DIFFUSE ABDOMINAL PAIN, CONSTIPATION, NAUSEA, AND VOMITING X 2 DAYS. SYMPTOMS HAVE PROGRESSIVELY GOTTEN WORSE. PAIN IS DESCRIBED SHARP AND IS WORSE WITH PALPATION. NOTHING MAKES PAIN BETTER. SHE DENIES HAVING A BOWEL MOVEMENT IN THE PAST TWO DAYS. SHE DENIES FEVER, CHILLS, URINARY SYMPTOMS, COUGH, OR CONGESTION. HER PMH INCLUDES: DM II, DYSLIPIDEMIA, HTN, HYPOTHYROIDISM, HYSTERECTOMY. ON ARRIVAL, HER VITALS WERE: 98.2-88-18-96%-222/118. LABS WERE OBTAINED. WBC 9.9, RBC 5.39, HGB 15.2, HCT 44.8, PLT COUNT 294, SODIUM 138, POTASSIUM 3.2, BUN 7, CREATININE 1.02, GLUCOSE 212, CALCIUM 9.1, AST 17, ALT 21, ALK PHOS 127, CREATINE KINASE 125, TROPONIN 71.7, TOTAL PROTEIN 9.1, ALBUMIN 3.7, GLOBULIN 5.4, LIPASE 944. COVID-19 NEGATIVE. ABDOMINAL XRAY OBTAINED AND REVEALED: 1.No acute cardiopulmonary disease. 2.No evidence for acute abdominal pathology. ABDOMEN/PELVIS CT WITH CONTRAST OBTAINED AND REVEALED: 1. Findings suggesting acute pancreatitis 2. Numerous tiny pancreatic cysts; recommend follow-up CT in 12 months 3. Nonobstructing right renal calculus 4. Hepatic steatosis 5. Colonic diverticula. - Past Medical History Past Medical History: Hypertension, Dyslipidemia, Diabetes, Hypothyroidism - Past Surgical History Surgical History: Hysterectomy Additional Surgical History: Total abdominal hysterectomy and bilateral salpingo- oophorectomy - Family History Family Medical History: Hypertension - Social History Does patient currently use any type of tobacco product: No Have you used tobacco products in the last 12 months: No Type of Tobacco Use: None Does any household member use tobacco: No Alcohol Use: None Drug Use: None - Medications Home Medications: No Known Drug Allergies Allergy (Verified 07/13/20 12:23) CONTINUE taking the following medications amlodipine 10 mg tablet (Norvasc) 10 mg PO HS 09/24/21 [History] atorvastatin 10 mg tablet 10 mg PO HS 09/24/21 [History] clonidine 0.3 mg/24 hr weekly transdermal patch 0.3 mg transdermal WEEKLY 09/24/21 [History] furosemide 20 mg tablet (Lasix) 20 mg PO DAILY 09/24/21 [History] losartan 100 mg tablet 100 mg PO DAILY 09/24/21 [History] ondansetron HCl 4 mg tablet 4 mg PO Q6H PRN Nausea 09/24/21 [History] pantoprazole 40 mg tablet,delayed release 40 mg PO DAILY 09/24/21 [History] promethazine 25 mg tablet 25 mg PO BID PRN Nausea 09/24/21 [History] sucralfate 1 gram tablet 1 g PO ACHS 09/24/21 [History] tizanidine 4 mg capsule (Zanaflex) 4 mg PO HS 09/24/21 [History] - Physical Exam Vital Signs: Temperature 98.4 F Pulse Rate [Left] 74 Pulse Rate 110 Respiratory Rate 18 Blood Pressure [Right Arm] 140/78 Blood Pressure 161/75 O2 Sat by Pulse Oximetry 92 - Allergies Allergies/Adverse Reactions: Allergies Allergy/AdvReac Type Severity Reaction Status Date / Time No Known Drug Allergies Allergy Verified 07/13/20 12:23
[2021-09-25] MEDS ORDERED: NovoLIN R (or HumuLIN R) SC PRN (11:52)
[2021-09-25] MEDS ORDERED: LOPRESSOR TAB 25 MG PO SCH (12:00)
[2021-09-25] MEDS ORDERED: ASPIRIN EC 81 MG PO SCH (12:00)
[2021-09-25] MEDS ORDERED: D5 1/2 NS 1,000 ML 1,000 ML IV SCH (12:00)
[2021-09-25 12:07] VITALS: BP 141/77
[2021-09-25] MEDS: ZOFRAN INJ 4 MG VIAL IVP PRN (14:52)
== END 2021-09-25 14:57 | disposition short-term general hospital (02) | DRG 440 ==
LOC: ER 12:26 → MED/SURG 16:26
PROVIDERS: ADMIT Internal Medicine; ATTEND Internal Medicine
DX: N20.0 Calculus of kidney; R77.8 Other specified abnormalities of plasma proteins; Z20.822 Contact with and (suspected) exposure to COVID-19; R94.31 Abnormal electrocardiogram [ECG] [EKG]; E78.2 Mixed hyperlipidemia; E11.65 Type 2 diabetes mellitus with hyperglycemia; K85.90 Acute pancreatitis without necrosis or infection, unspecified; I10 Essential (primary) hypertension; K76.0 Fatty (change of) liver, not elsewhere classified; E03.8 Other specified hypothyroidism; K57.30 Diverticulosis of large intestine without perforation or abscess without bleeding; R26.89 Other abnormalities of gait and mobility